=== PATIENT | female | born 2000 | race Caucasian/White ===

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

== ENCOUNTER → 2020-07-16 10:49 | Outpatient (CLI) | payer OTHER, SELFPAY ==
[2020-07-16 10:21] VITALS: BMI 16.5
[2020-07-16 12:17] LABS: Absolute Lymphocyte Count 1.88 X10^3/uL (0.83-4.51); Absolute Neutrophil Count 3.8 X10^3/uL (2.0-7.7); Basophil# 0.05 X10^3/uL; Basophil% 0.8 % (0-1); Eosinophil# 0.34 X10^3/uL; Eosinophils% 5.3 % (0-5); Hematocrit 40.1 % (37-47); Hemoglobin 13.2 g/dL (12.0-15.0); Lymphocyte # 1.88 X10^3/ul (4.0); Lymphocyte % 29.1 % (19-41); Mean Corp Hgb Conc 32.9 g/dL (32-36); Mean Corpuscular Hgb 29.5 pg (27.0-32.0); Mean Corpuscular Volume 89.5 fL (81-99); Mean Platelet Vol. 9.3 fl (6.2-12.0); Monocyte# 0.38 X10^3/uL; Monocyte% 5.9 % (0-10); NRBC Flagged by Analyzer 0 % (0-5); Neutrophil # 3.81 X10^3/uL (2.7-7.7); Neutrophil % 58.7 % (47-70); Platelet Count 230 K/mm3 (150-450); RBC Distribution Width CV 11.8 % (11.6-14.6); RBC Distribution Width SD 38.1 fl (35.1-43.9); Red Blood Count 4.48 M/mm3 (4.2-5.4); White Blood Count 6.5 K/mm3 (4.4-11.0)
[2020-07-16 12:46] LABS: ALB/GLOB Ratio 1.5 RATIO (0.9-2.4); AST(SGOT) 19 U/L (15-37); Alanine Aminotransfer ALT/SGPT 23 U/L (13-56); Albumin, Serum 4.5 g/dL (3.2-5.0); Alkaline Phosphatase 62 U/L (45-117); Anion Gap 4 (5-15); BUN 9 mg/dL (7-18); BUN/Creat Ratio 10.9 RATIO (10-20); Calcium,Total 8.9 mg/dL (8.5-10.1); Chloride 108 mmol/L (98-107); Creatinine, Serum 0.83 mg/dL (0.55-1.02); EST Glomerular Filtration Rate 93 mL/min (>60); Est Glom Filt Rate - Afr Amer 113 mL/min (>60); Globulin 3.1 g/dL (2.2-4.2); Glucose 88 mg/dL (74-106); Potassium 4.2 mmol/L (3.5-5.1); Protein, Total 7.6 g/dL (6.4-8.2); Sodium Level 138 mmol/L (136-145)
== END ==
PROVIDERS: PCP Internal Medicine; Referring Provider Internal Medicine; Visit Provider Internal Medicine
DX: K21.9 Gastro-esophageal reflux disease without esophagitis (principal); K29.70 Gastritis, unspecified, without bleeding
CPT/HCPCS: 36415; 80053; 85025

== ENCOUNTER 2021-04-25 14:46 | Emergency (ER) | payer OTHER, SELFPAY ==
[2021-03-21 09:45] VITALS: BMI 18.5
[2021-04-25 14:46] VITALS: BP 136/86; PULSE 124; RESP 16; TEMP 36.8; O2SAT 99; BMI 18.7
--- NOTE | 2021-04-25 15:15 | ED.VIS.FEGU ---
HPI HPI - Female History of Present Illness Chief Complaint: Vag Bld, Preg Informant: patient Narrative Narrative: Patient is a 20-year-old female who presents to the emergency department for concern for miscarriage. She states that she started to have abdominal cramping and bleeding yesterday. She is gone through 4 pantiliners today. She had one positive test previously and one negative test. [facility] which they could not find any intrauterine . She states her last menstrual period was in February. She was thought to be approximately 6 weeks . This is her first test. Her cramping is currently mild. mostly in the lower quadrants. She has had some lightheadedness. Denies any chest pain, shortness of breath. She denies any urinary symptoms. She has had some chills but no fevers. [facility] Medical History (Updated 04/25/21 @ 16:[address] Trevon Hihgtower DO) Frequent headaches Home Medications NK 04/25/21 [History Last Taken Unknown] Allergy/AdvReac Type Severity Reaction Status Date / Time No Known Allergies Allergy Verified 04/25/21 14:49 Family History Aunt Endometriosis Mother Uterine cyst Hypertension Grandfather Hyperlipemia Social History Smoking Status: Never smoker alcohol intake: current alcohol intake frequency: a few times a month substance use type: marijuana caffeine: Yes (3) Type: carbonated beverages and coffee what type of physical activity do you participate in: none seatbelt use: always do you feel safe at home: Yes additional social history: Patient works at [employer] ED Constitutional Constitutional ED: Reports chills; Denies fever(s) Eyes Eyes: Denies change in vision ENT ENT ED: Denies epistaxis or rhinorrhea Cardiovascular Cardiovascular: Denies chest pain or palpitations Respiratory/Chest Respiratory/Chest: Denies cough, dyspnea or dyspnea on exertion Gastrointestinal Gastrointestinal: Reports abdominal pain; Denies diarrhea, nausea or vomiting Genitourinary Genitourinary ED: Reports other Details: Vaginal bleeding ; Denies dysuria, hematuria or urinary frequency Musculoskeletal Musculoskeletal: Denies back pain or neck pain Integumentary Denies rash Neurologic Neurologic: Denies dizziness, headache(s) or weakness EXAM Physical Exam Const Vital Signs: 04/25/21 14:46 Temperature 98.3 F Temperature Source Temporal Pulse Rate 124 H Respiratory Rate 16 Blood Pressure 136/86 H Blood Pressure Mean 102 Pulse Ox 99 Oxygen Delivery Method Room Air Positive well nourished and well developed General Appearance ED: well developed and NAD HEENT Reports normocephalic, head/scalp atraumatic and moist mucous membranes Eyes PERRL and EOMs intact bilaterally Neck no lymphadenopathy and supple General: Negative for tenderness Chest Wall inspection of chest normal Resp normal respiratory effort and clear to auscultation bilaterally Auscultation: Negative for rales, rhonchi or wheezes Cardio regular rate, regular rhythm and no murmurs GI normal to inspection, nondistended, normoactive bowel sounds and non-tender Palpation: soft; Negative for guarding or rebound tenderness present Back/Spine no CVA tenderness Extremity normal to inspection General Extremety ED: Negative for edema or tenderness General Extremity: Negative for edema Neuro oriented x3, CN's II-XII intact bilaterally and no sensory deficits noted Sensorium / Orientation: alert Motor Exam: strength 5/5 throughout Psych mental status grossly normal Skin no rashes or lesions noted MDM MDM MDM Narrative Medical decision making narrative: Patient presents to the emergency department for abdominal cramping and vaginal bleeding. She states that she had one positive test with negative test up to this point. She is supposed to be on control but is sexually active. Upon arrival to the emergency department she is mildly tachycardic but resolved once lying. She is borderline hypertensive. Otherwise vital signs within normal limits. She is in no acute distress. Will check basic lab work along with an hCG level. Patient's hCG quantitative level is 0. Patient likely having menstrual period. Her white blood cell count is mildly elevated but she is not anemic. Her creatinine is mildly elevated and will need this rechecked by her PCP as an outpatient. Otherwise the urine showed many red blood cells consistent with the bleeding. This time she is stable for discharge. She feels comfortable with this plan. Return precautions are reviewed with her. She understands and is agreeable with plan. All questions were answered. Lab Data Labs: Laboratory Results - last 24 hr 04/25/21 04/25/21 04/25/21 14:30 14:30 14:50 WBC 12.6 H RBC 5.08 Hgb 15.0 Hct 45.7 MCV 90.0 MCH 29.5 MCHC 32.8 RDW Std Deviation 39.0 RDW Coeff of Tree 11.9 Plt Count 295 MPV 9.1 Immature Gran % (Auto) 0.400 Neut % (Auto) 68.4 Lymph % (Auto) 24.3 [place] % (Auto) 5.2 Eos % (Auto) 1.2 Baso % (Auto) 0.5 Absolute Neuts (auto) 8.6 H Absolute Lymphs (auto) 3.07 Nucleated RBC % 0 Sodium 139 Potassium 3.6 Chloride 104 Carbon Dioxide 26.0 Anion Gap 9 BUN 13 Creatinine 1.23 H Estim Creat Clear Calc 57.01 Est GFR (MDRD) Af Amer 71 Est GFR (MDRD) Non-Af 59 L BUN/Creatinine Ratio 10.6 Glucose 99 Calcium 9.4 HCG, Quant < 1 Urine Color Urine Clarity Urine pH Ur Specific [place] Urine Protein Urine Glucose (UA) Urine Ketones Urine Occult Blood Urine Nitrite Urine Bilirubin Urine Urobilinogen Ur Leukocyte Esterase Urine RBC Urine WBC Ur Squamous Epith Cells Urine Bacteria Urine Mucus 04/25/21 15:30 WBC RBC Hgb Hct MCV MCH MCHC RDW Std Deviation RDW Coeff of Tree Plt Count MPV Immature Gran % (Auto) Neut % (Auto) Lymph % (Auto) [place] % (Auto) Eos % (Auto) Baso % (Auto) Absolute Neuts (auto) Absolute Lymphs (auto) Nucleated RBC % Sodium Potassium Chloride Carbon Dioxide Anion Gap BUN Creatinine Estim Creat Clear Calc Est GFR (MDRD) Af Amer Est GFR (MDRD) Non-Af BUN/Creatinine Ratio Glucose Calcium HCG, Quant Urine Color Jennifer Urine Clarity Cloudy Urine pH 5.0 Ur Specific [place] 1.025 Urine Protein 100 H Urine Glucose (UA) Normal Urine Ketones 15 H Urine Occult Blood 250 H Urine Nitrite Negative Urine Bilirubin 1 H Urine Urobilinogen 1 H Ur Leukocyte Esterase 25 H Urine RBC > 100 SEEN Urine WBC 0 SEEN Ur Squamous Epith Cells 0-5 SEEN Urine Bacteria RARE Urine Mucus 0 SEEN Discharge Plan Triage Chief Complaint: Vag Bld, Preg ED Provider: Trevon Hightower Dx/Rx/DC Orders Clinical Impression: Vaginal bleeding Instructions: ED Dysfunctional Uterine Bleeding Prescriptions: No Action NK RF: 0 Primary Care Provider: Omar Chauhan Referrals: Omar Chauhan MD [Primary Care Provider] - 3-5 Days if not improving Disposition Disposition: Home, self care
[2021-04-25 15:23] LABS: Absolute Lymphocyte Count 3.07 X10^3/uL (0.83-4.51); Absolute Neutrophil Count 8.6 X10^3/uL (2.0-7.7); Basophil# 0.06 X10^3/uL; Basophil% 0.5 % (0-1); Eosinophil# 0.15 X10^3/uL; Eosinophils% 1.2 % (0-5); Hematocrit 45.7 % (37-47); Lymphocyte # 3.07 X10^3/ul (0.83-4.51); Lymphocyte % 24.3 % (19-41); Mean Corp Hgb Conc 32.8 g/dL (32-36); Mean Corpuscular Hgb 29.5 pg (27.0-32.0); Mean Platelet Vol. 9.1 fl (6.2-12.0); Monocyte# 0.65 X10^3/uL; Monocyte% 5.2 % (0-10); NRBC Flagged by Analyzer 0 % (0-5); Neutrophil # 8.64 X10^3/uL (2.7-7.7); Neutrophil % 68.4 % (47-70); Platelet Count 295 K/mm3 (150-450); RBC Distribution Width CV 11.9 % (11.6-14.6); Red Blood Count 5.08 M/mm3 (4.2-5.4); White Blood Count 12.6 K/mm3 (4.4-11.0)
[2021-04-25 15:30] LABS: Anion Gap 9 (5-15); BUN 13 mg/dL (7-18); BUN/Creat Ratio 10.6 RATIO (10-20); Calcium,Total 9.4 mg/dL (8.5-10.1); Chloride 104 mmol/L (98-107); Creatinine, Serum 1.23 mg/dL (0.55-1.02); EST Glomerular Filtration Rate 59 mL/min (>60); Est Glom Filt Rate - Afr Amer 71 mL/min (>60); Estimated Creatinine Clearance 57.01 ml/min; Glucose 99 mg/dL (74-106); Potassium 3.6 mmol/L (3.5-5.1); Sodium Level 139 mmol/L (136-145)
[2021-04-25 15:43] LABS: Mucous, Urine 0 SEEN /hpf (<or=2+); White Blood Cells 0 SEEN /hpf (0-5)
[2021-04-25 15:45] LABS: Color, Urine Amber (Yellow); Glucose, Dipstick Normal (Normal); Ketone-Dipstick 15 mg/dl (Negative); Leukocyte Esterase-Dipstick 25 /ul (Negative); Nitrite-Dipstick Negative (Negative); Occult Blood-Urine 250 /ul (Negative); Protein-Dipstick 100 mg/dl (Negative); Specific Gravity, Urine 1.025 (1.002-1.030); Urine Clarity Cloudy (Clear); Urine Urobilinogen 1 mg/dl (Normal)
[2021-04-25 15:48] LABS: Urine Bilirubin Dipstick 1 mg/dL (Negative)
[2021-04-25 15:52] LABS: Red Blood Cells-Urine > 100 SEEN /hpf (0-5); Squamous Epithelial Cells - UA 0-5 SEEN /hpf (5-10)
[2021-04-25 15:53] LABS: Bacteria RARE /hpf (None Seen)
[2021-04-25 15:54] LABS: hCG Titer Quant., Serum < 1 mIU/mL (1-3)
[2021-04-25 16:23] VITALS: PULSE 84; RESP 16; O2SAT 100
--- NOTE | 2021-04-25 16:23 | ED.RN ---
REVIEWED D/C INSTRUCTIONS, FOLLOW UP CARE, AND S/S THAT WOULD WARRANT A RETURN TO THE ED WITH PT. PT VERBALIZED AN UNDERSTANDING AND DENIES FURTHER QUESTIONS FOR THIS RN. PT SKIN P/W/D, RESP EVEN AND UNLABORED, PT A&O X 3, NO DISTRESS NOTED. PT AMBULATED OUT OF ED, GAIT STEADY.
== END 2021-04-25 16:24 | disposition home or self-care (01) ==
PROVIDERS: Emergency Provider Emergency Medicine; PCP Internal Medicine
DX: N93.9 Abnormal uterine and vaginal bleeding, unspecified (principal)
CPT/HCPCS: 80048; 81001; 84702; 85025; 99282; A4216

== ENCOUNTER → 2021-07-29 10:36 | Outpatient (CLI) | payer OTHER, SELFPAY ==
[2021-07-29 11:28] LABS: Absolute Lymphocyte Count 1.88 X10^3/uL (0.83-4.51); Absolute Neutrophil Count 4.9 X10^3/uL (2.0-7.7); Basophil# 0.06 X10^3/uL; Basophil% 0.8 % (0-1); Eosinophil# 0.16 X10^3/uL; Eosinophils% 2.2 % (0-5); Hematocrit 40.3 % (37-47); Hemoglobin 13.2 g/dL (12.0-15.0); Lymphocyte # 1.88 X10^3/ul (0.83-4.51); Lymphocyte % 25.4 % (19-41); Mean Corp Hgb Conc 32.8 g/dL (32-36); Mean Corpuscular Hgb 29.3 pg (27.0-32.0); Mean Corpuscular Volume 89.4 fL (81-99); Mean Platelet Vol. 9.3 fl (6.2-12.0); Monocyte# 0.36 X10^3/uL; Monocyte% 4.9 % (0-10); NRBC Flagged by Analyzer 0 % (0-5); Neutrophil # 4.91 X10^3/uL (2.7-7.7); Neutrophil % 66.3 % (47-70); Platelet Count 235 K/mm3 (150-450); RBC Distribution Width CV 11.8 % (11.6-14.6); RBC Distribution Width SD 38.1 fl (35.1-43.9); Red Blood Count 4.51 M/mm3 (4.2-5.4); White Blood Count 7.4 K/mm3 (4.4-11.0)
[2021-07-29 11:56] LABS: AST(SGOT) 18 U/L (15-37); Alanine Aminotransfer ALT/SGPT 24 U/L (13-56); Albumin, Serum 3.9 g/dL (3.2-5.0); Alkaline Phosphatase 45 U/L (45-117); Anion Gap 4 (5-15); BUN 7 mg/dL (7-18); BUN/Creat Ratio 9.6 RATIO (10-20); Calcium,Total 8.8 mg/dL (8.5-10.1); Chloride 106 mmol/L (98-107); Cholesterol 135 mg/dL (200); Creatinine, Serum 0.73 mg/dL (0.55-1.02); EST Glomerular Filtration Rate 107 mL/min (>60); Est Glom Filt Rate - Afr Amer 129 mL/min (>60); Globulin 3.9 g/dL (2.2-4.2); Glucose 130 mg/dL (74-106); High Density Lipoprotein 58 mg/dL; Potassium 3.9 mmol/L (3.5-5.1); Protein, Total 7.8 g/dL (6.4-8.2); Sodium Level 136 mmol/L (136-145); Triglycerides 106 mg/dL; Very Low Density Lipoprotein 21 mg/dL (5-40)
[2021-08-02 05:07] LABS: Chlamydia By Nucleic Acid AMP Negative (Negative)
[2021-08-02 08:53] LABS: Gonococcus By Nucleic Acid AMP Negative (Negative)
== END ==
PROVIDERS: Obstetrics & Gynecology; PCP Internal Medicine; Referring Provider Internal Medicine; Visit Provider Internal Medicine
DX: Z00.00 Encounter for general adult medical examination without abnormal findings (principal); Z11.3 Encounter for screening for infections with a predominantly sexual mode of transmission
CPT/HCPCS: 36415; 80053; 80061; 85025; 87491; 87591

== ENCOUNTER → 2021-11-16 14:25 | Outpatient (CLI) | payer OTHER, SELFPAY ==
[2021-11-16 14:27] LABS: Mucous, Urine 0 SEEN /hpf (<or=2+); Red Blood Cells-Urine 0 SEEN /hpf (0-5)
[2021-11-16 15:01] LABS: Color, Urine Straw (Yellow); Glucose, Dipstick Normal (Normal); Ketone-Dipstick Negative (Negative); Leukocyte Esterase-Dipstick 25 /ul (Negative); Nitrite-Dipstick Negative (Negative); Occult Blood-Urine 10 /ul (Negative); Protein-Dipstick Negative (Negative); Specific Gravity, Urine 1.015 (1.002-1.030); Urine Bilirubin Dipstick Negative (Negative); Urine Clarity Clear (Clear); Urine Urobilinogen Normal (Normal)
[2021-11-16 15:10] LABS: Squamous Epithelial Cells - UA 0-5 SEEN /hpf (5-10); White Blood Cells 0-5 SEEN /hpf (0-5)
[2021-11-16 15:11] LABS: Bacteria 1+ /hpf (None Seen)
== END ==
PROVIDERS: PCP Internal Medicine; Referring Provider Physician Assistant; Visit Provider Physician Assistant
DX: R35.0 Frequency of micturition (principal); R30.0 Dysuria
CPT/HCPCS: 81001; 87086

== ENCOUNTER → 2025-04-16 | Outpatient (CLI) | payer OTHER, SELFPAY ==
[2025-04-16 15:58] LABS: Color, Urine Yellow (Yellow); Glucose, Dipstick Normal (Normal); Ketone-Dipstick Negative (Negative); Leukocyte Esterase-Dipstick Negative /ul (Negative); Nitrite-Dipstick Negative (Negative); Occult Blood-Urine 50 /ul (Negative); Protein-Dipstick 15 mg/dl (Negative); Specific Gravity, Urine 1.015 (1.002-1.030); Urine Bilirubin Dipstick Negative (Negative); Urine Clarity Clear (Clear); Urine Urobilinogen Normal (Normal)
[2025-04-16 17:48] LABS: ALB/GLOB Ratio 1.5 RATIO (0.9-2.4); AST(SGOT) 25 U/L (<=31); Alanine Aminotransfer ALT/SGPT 15 U/L (<=34); Albumin, Serum 4.8 g/dL (3.5-5.0); Alkaline Phosphatase 67 U/L (35-104); Anion Gap 10 (5-15); BUN 12 mg/dL (4-19); BUN/Creat Ratio 14.3 RATIO (10-20); Calcium,Total 9.5 mg/dL (7.6-11.0); Carbon Dioxide 24.4 mmol/L (21.0-32.0); Chloride 103 mmol/L (98-108); Creatinine, Serum 0.83 mg/dL (0.70-1.20); EST Glomerular Filtration Rate 101 (>60); Globulin 3.2 g/dL (2.2-4.2); Glucose 90 mg/dL (70-99); Potassium 4.1 mmol/L (3.3-5.1); Protein, Total 7.9 g/dL (5.9-8.4); Sodium Level 138 mmol/L (133-145); Total Bilirubin 0.51 mg/dL (0.00-1.30)
[2025-04-18 04:07] LABS: ASO Titer 315.4 IU/mL (0.0-200.0)
[2025-04-21 15:08] LABS: Anti-Nuclear Antibody Test Negative (.)
== END | disposition home or self-care (01) ==
LOC: MTLAB 12:31
PROVIDERS: PCP Family Medicine; Referring Provider Physician Assistant; Visit Provider Physician Assistant
DX: L30.9 Dermatitis, unspecified (principal)
CPT/HCPCS: 36415; 80053; 81002; 86038; 86060; 87086

== ENCOUNTER → 2025-10-06 | Outpatient (CLI) | payer OTHER, SELFPAY ==
--- OUTSIDE RECORDS SUMMARY | 2025-10-06 17:18 | XMS RPT_ITS | CCD ---
Author Organization [facility] ion [facility] Care Team Providers Care Lcsw Name Role Phone Ivanauskas, Saulius Unavailable Unavailable Ivanauskas, Saulius Unavailable Unavailable No Doctor Assigned, Nodr Unavailable Unavail able STAN CHAUHAN Primary Care Unav ailable RASHIDA HELLER Attending Unavailab RASHIDA Keyes Admitting Unavailab le VALE DO-FACNEHEMIAS LOPEZ Attending Unavail able SOLE CHAUHANBE B Primary Care Unavailable VALE DO-FACNEHEMIAS LOPEZ Attending Unavail able SOLE CHAUHANBE B Primary Care Unavailable VALE DO-FACNEHEMIAS LOPEZ Attending Unavail able SOLE CHAUHANBE B Primary Care Unavailable Sole Chauhanbe B Unavailable Kodi Ramsey Unavailable Unavailable Roxy, Ms. Kodi Lancaster Attending Dr. Stan Shirley Primary Care Unavailable Angela Parker MD Primary Care Provider Angela Parker MD Unavailable Angela Parker MD Unavailable [phone] Angela Parker MD Primary Care Provider ANGELA PARKER Primary Care Unavailable Angela Parker MD Primary Care Provider Angela Parker MD Unavailable Dr. Angela Parker MD Primary Care Provider Joaquina Berrios Attending Provider Joaquina Berrios Referring Provider ANGELA PARKER Primary Care Unavailable Yeater, Angela Archuleta Primary Care Unavailable Sarah Eric Attending Unavailable Yeater, Angela M Referring Unavailable Joaquina Berrios Referring Unavailable Joaquina Berrios Attending Unavailable Yeater, Angela Kathe Primary Care Unavailable DON KATELYN Miller Attending Unavailable YEATER, ANGELA M Primary Care Unavailable YEATER, ANGELA M Attending Unavailable YEATER, ANGELA M Primary Care Unavailable YEATER, ANGELA M Attending Unavailable YEATER, ANGELA M Primary Care Unavailable YEATER, ANGELA M Attending Unavailable YEATER, ANGELA M Primary Care Unavailable YEATER, ANGELA M Referring Unavailable YEATER, ANGELA M Attending Unavailable YEATER, ANGELA M Primary Care Unavailable YEATER, ANGELA M Attending Unavailable YEATER, ANGELA M Primary Care Unavailable YEATER, ANGELA M Attending Unavailable YEATER, ANGELA M Primary Care Unavailable Allergies Allergy Classification Reported Allergen(s) Allergy Type Date of Onset Reaction(s) Facility (1 source) Azithromycin; Translations: [Zithromax] Drug Allergy [facility] Repository (7 sources) Azithromycin; Translations: [AZITHROMYCIN] Drug Allergy 03-23-2025 [facility] Medications Current Medications Medication Drug Class(es) Dates Sig (Normalized) Sig (Original) acetaminophen 500 mg oral tablet (5 sources) acetaminophen (Tylenol) 500 mg tablet Take 2 tablets (1,000 mg) by mouth if needed for mild pain (1 - 3). Active CONTROL (1 source) CONTROL Quantity: 0 Refills: 0 Ordered: 26-Jun-2023 Cynthia Graves Generic Substitution Allowed 12 hr buPROPion hydrochloride 150 mg extended release oral tablet (1 source) Aminoketone Start: 01-09-2024 End: 02-07-2024 take 1 tablet by mouth twice daily buPROPion SR (Wellbutrin SR) 150 mg 12 hr tablet Indications: Vaping nicotine dependence, non-tobacco product Take 1 tablet (150 mg) by mouth 2 times a day. Do not crush, chew, or split. 60 tablet 1 01/09/2024 02/07/2024 Discontinued (Med List Cleanup) cephalexin 500 mg oral capsule (1 source) Cephalosporin Antibacterial Start: 01-04-2024 End: 02-07-2024 take 1 capsule by mouth three times daily cephalexin (Keflex) 500 mg capsule Take 1 capsule (500 mg) by mouth 3 times a day. 0 01/04/2024 02/07/2024 Discontinued (Med List Cleanup) colchicine 0.6 mg oral tablet (1 source) Start: 06-03-2025 take 1 tablet by mouth every twelve hours colchicine 0.6 mg tablet Take 1 tablet (0.6 mg) by mouth every 12 hours. 06/03/2025 Active Desog-E.Estradiol/E .Estradiol (2 sources) Progestin, Estrogen Start: 07-27-2021 Desog-E.Estradiol/ E.Estradiol 0.15-0.02 mgx21 /0.01 mg x 5 tablet Active NMA PO July 27, 2021 12:00am Start: 05-21-2020 End: 03-21-2021 take 0.15 tablet by mouth once daily Desog-E.Estradiol/E.Estradiol (Kariva (2 8)) 0.15-0.02 mgx21 /0.01 mg x 5 tablet Discontinued 1 {tbl} PO daily May 21, 2020 12:00am March 21, 2021 10:16am fluconazole 150 mg oral tablet (1 source) Azole Antifungal Start: 06-26-2023 Diflucan 150 mg oral tablet ; 1 tab(s) orally once today and then again in 3 days Quantity: 2 Refills: 0 Ordered: 26-Jun-2023 Kodi Ramsey Start: 26-Jun-2023 Generic Substitution Allowed Comments: Do not take this drug if you are .Finish all this medication unless otherwise directed by prescriber. Comment on above: Do not take this susana g if you are .Finish all this medication unless otherwise directed by prescriber. levoFLOXacin 250 mg oral tablet (1 source) Quinolone Antimicrobial Start: 11-17-2021 take 1 tablet by mouth once daily Levofloxacin 250 mg tablet Active 250 mg PO DAILY November 17, 2021 1:00am levonorgestrel 0.596327 mg/hr intrauterine system (2 sources) Progestin, Progestin-containin g Intrauterine Device Start: 03-23-2025 End: 03-23-2025 levonorgestreL (Liletta) IUD 52 mg Start: 03-23-2025 End: 03-23-2025 52 mg (1 each), intrauterine , Once, On 03/23/25 at 1115, For 1 dose methylPREDNISolone (2 sources) Corticosteroid Start: 03-17-2025 End: 03-23-2025 methylPREDNISolone (Medrol Dospak) 4 mg tablets Indications: Itching of both hands , Irritant contact dermatitis due to cosmetics Take as directed on package. 21 tablet 03/17/2025 03/23/2025 Active 24 hr nicotine 0.292 mg/hr transdermal system (6 sources) Cholinergic Nicotinic Agonist Start: 03-20-2024 End: 05-12-2024 apply 1 dose transdermal route every twenty-four hours nicotine (Nicoderm CQ) 7 mg/24 hr patch Indications: Vaping nicotine dependence, non-tobacco product Place 1 patch over 24 hours on the skin once every 24 hours. Do not start before March 20, 2024. 14 patch 03/20/2024 05/12/2024 Discontinued (Med List Cleanup) Start: 02-07-2024 End: 05-12-2024 apply 1 dose transdermal route every twenty-four hours nicotine (Nicoderm CQ) 14 mg/24 hr patch Indications: Vaping nicotine dependence, non-tobacco product Place 1 patch over 24 hours on the skin once every 24 hours. 42 patch 02/07/2024 05/12/2024 Discontinued (Med List Cleanup) Start: 02-07-2024 End: 05-12-2024 nicotine polacrilex (Nicoret te) 2 mg gum Indications: Vaping nicotine dependence, non-tobacco product Chew 1 each (2 mg) if needed for smoking cessation. 100 each 3 02/07/2024 05/12/2024 Discontinued (Med List Cleanup) phenazopyridine hydrochloride 100 mg oral tablet (1 source) Start: 09-08-2024 End: 09-11-2024 take 1 tablet by mouth three times daily as needed for muscle spasms phenazopyridine (Pyridium) 100 mg tablet Indications: Urine frequency , Dysuria Take 1 tablet (100 mg) by mouth 3 times a day as needed for bladder spasms for up to 3 days. 9 tablet 09/08/2024 09/11/2024 Active predniSONE 20 mg oral tablet (1 source) Start: 05-21-2025 take 0.5 tablet by mouth once daily predniSONE (Deltasone) 20 mg tablet Take 0.5 tablets (10 mg) by mouth once daily. 50 MG , down to 40mg tomorrow 05/21/2025 Active sulfamethoxazole 800 mg / trimethoprim 160 mg oral tablet (1 source) Dihydrofolate Reductase Inhibitor Antibacterial, Sulfonamide Antimicrobial Start: 09-08-2024 End: 09-11-2024 take 1 tablet by mouth twice daily sulfamethoxazole-tri methoprim (Bactrim DS) 800-160 mg tablet Indications: Urine frequency , Dysuria Take 1 tablet by mouth 2 times a day for 3 days. 6 tablet 09/08/2024 09/11/2024 Active timolol 0.005 mg/mg ophthalmic gel (1 source) beta-Adrenergic Isaac Start: 06-03-2025 timolol (Timoptic-XR) 0.5 % ophthalmic gel-forming APPLY 3 DROPS TO THE RIGHT LEG AND 2 DROPS TO THE LEFT EVERY MORNING 06/03/2025 Active Completed/Discontinued Medications Medication Drug Class(es) Dates Sig (Normalized) Sig (Original) ciprofloxacin 500 mg oral tablet (1 source) Quinolone Antimicrobial Start: 11-16-20 End: 11-17-20 21 take 1 tablet by mouth twice daily Ciprofloxacin Hcl 500 mg tablet Discontinued 500 mg PO TWICE A DAY November 16, 2021 1:00am November 17, 2021 3:50pm 1 ml medroxyPROGESTERone acetate 150 mg/ml injection (3 sources) Progestin Start: 02-20-20 End: 03-21-20 inject 150 mg by intramuscular injection every three months Medroxyprogesterone (Depo-Provera) 150 mg/mL suspension Discontinued 150 mg IM every 3 months February 26, 2020 10:57am March 21, 2021 9:50am omeprazole 40 mg delayed release oral capsule (2 sources) Proton Pump Inhibitor Start: 03-14-20 End: 03-19-20 take 1 capsule by mouth once daily Omeprazole 40 mg capsule,delayed release(DR/EC) Discontinued 40 mg PO DAILY March 14, 2019 10:12am March 19, 2019 2:17pm Start: 02-24-2019 End: 03-14-2019 take 1 capsule by mouth once daily Omeprazole 20 mg capsule,delayed release(DR/EC) Discontinued 20 mg PO DAILY February 24, 2019 12:00am March 14, 2019 10:12am pantoprazole 40 mg delayed release oral tablet (2 sources) Proton Pump Inhibitor Start: 04-10-2019 End: 07-10-2019 take 1 tablet by mouth twice daily Pantoprazole 40 mg tablet,delayed release (DR/EC) Discontinued 40 mg PO TWICE A DAY 180 April 10, 2019 5:14pm July 10, 2019 1:50pm Start: 03-19-2019 End: 04-10-2019 take 1 tablet by mouth once daily Pantoprazole 40 mg tablet,delayed release (DR/EC) Discontinued 40 mg PO DAILY 30 March 19, 2019 12:00am April 10, 2019 5:15pm sucralfate 1000 mg oral tablet (1 source) Aluminum Complex Start: 03-14-2019 End: 04-10-2019 take 1 tablet by mouth at bedtime Sucralfate 1 gram tablet Discontinued 1 g PO before meals and at bedtime 60 March 14, 2019 12:00am April 10, 2019 5:14pm Problems Active Problems Problem Classification Problem Date Documented Da te Episodic/Chronic Abdominal pain (1 source) Abdominal pain; Translations: [Unspecified abdominal pain] 02-24-2019 Episodic Allergic reactions (4 sources) Irritant contact dermatitis due to cosmetic; Translations: [Irritant contact dermatitis due to cosmetics] Onset: 5 03-17-2025 Episodic Coagulation and hemorrhagic disorders (6 sources) Petechiae; Translations: [Spontaneous ecchymoses] Onset: 5 04-14-2025 Episodic Contraceptive and procreative management (18 sources) Intrauterine contraceptive device in situ; Translations: [Presence of (intrauterine) contraceptive device] Onset: 5 03-23-2025 Episodic Esophageal disorders (1 source) Gastroesophageal reflux disease; Translations: [Gastro-esophageal reflux disease without esophagitis] 02-24-2019 Chronic Gastritis and duodenitis (1 source) Gastritis; Translations: [Gastritis, unspecified, without bleeding] 02-24-2019 Episodic Gastrointestinal hemorrhage (1 source) Hematochezia; Translations: [Melena] 03-14-2019 Episodic Immunizations and screening for infectious disease (14 sources) Patient encounter status; Translations: [Encounter for screening for human immunodeficiency virus [HIV]] Onset: 5 05-12-2024 Episodic Inflammatory diseases of female pelvic organs (3 sources) Vaginitis; Translations: [Vaginitis and vulvovaginitis, unspecified] Onset: 3 06-26-2023 Episodic Other circulatory disease (3 sources) Hypersensitivity angiitis; 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 Other circulatory disease (2 sources) Hypersensitivity angiitis; 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 Other connective tissue disease (2 sources) Pain of left lower leg; Translations: [Pain in left lower leg] Onset: 5 04-14-2025 Episodic Other connective tissue disease (1 source) Pain in left lower leg; Translations: [Pain in left lower leg] Onset: 5 Episodic Other female genital disorders (1 source) Vaginal bleeding; Translations: [Abnormal uterine and vaginal bleeding, unspecified] 04-25-2021 Chronic Other female genital disorders (4 sources) Vaginal discharge; Translations: [Leukorrhea, not specified as infective] 06-26-2023 Episodic Comment on above: VAGINAL DISCHARGE Other female genital disorders (1 source) Other specified noninflammatory disorders of vagina; Translations: [Other specified noninflammatory disorders of vagina] Onset: 3 Episodic Other inflammatory condition of skin (3 sources) Pruritus, unspecified; Translations: [Unspecified pruritic disorder] Onset: 5 03-17-2025 Episodic Substance-related disorders (12 sources) Nicotine dependence; Translations: [Nicotine dependence, unspecified, uncomplicated] Onset: 4 02-07-2024 Chronic Past or Other Problems Problem Classification Problem Date Documented Da te Episodic/Chronic Genitourinary symptoms and ill-defined conditions (5 sources) Dysuria; Translations: [Increased frequency of urination] Onset: 06-26-2023 09-08-2024 Episodic Other nutritional; endocrine; and metabolic disorders (13 sources) Underweight; Translations: [Underweight] Onset: 02-07-2024 02-07-2024 Episodic Other nutritional; endocrine; and metabolic disorders (1 source) Underweight; Translations: [Underweight] Onset: 05-12-2024 Episodic Other screening for suspected conditions (not mental disorders or infectious disease) (7 sources) Cancer cervix screening status; Translations: [Encounter for screening for malignant neoplasm of cervix] Onset: 12-10-2024 12-11-2024 Episodic Unclassified (10 sources) Onset: 01-09-2024 Resolved: 09-08-2024 01-09-2024 Unclassified (1 source) Patient encounter status 03-23-2025 Results Test Name Value Interpretation Reference Range Facility IUD Removalon 06-04-2025 Angela Parker MD 06/04/2025 12:26 PM IUD Removal Performed by: Angela Parker MD Authorized by: Angela Parker MD Procedure: IUD removal Consent obtained by patient, parent, or legal power of commercial real estate attorney - including discussion of procedure risks and benefits, patient questions answered, and patient education provided: yes Reason for removal: patient request Strings visualized: yes Tenaculum applied to cervix: no Cervix manually dilated: no IUD grasped by forceps: yes Performed with ultrasound guidance: no IUD removed: yes Date/Time of Removal: 06/04/2025 11:55 AM Removed without complications: yes IUD intact: yes [facility] Work Phone: [facility] Work Phone: ALBUMIN, RANDOM URINE W/CREA TININEon 05-13-2025 ALBUMIN, URINE 1.2 mg/dL Normal See Note: [facility] Comment on above: Order Comment: FASTI NG:UNKNOWN FASTING: UNKNOWN Result Comment: Refe rence Range: Reference Range Not established Performed By: #### 6 [id number] #### [facility] [address], [address] [place] [id number] Personal Protection Specialist: Juan Hutton MD ALBUMIN/CREATININE RATIO, RANDOM URINE 6 mg/g creat Normal <30 [facility] Comment on above: Order Comment: FASTI NG:UNKNOWN FASTING: UNKNOWN Result Comment: The ADA defines abnormalities in albumin excretion as follows: Albuminuria Category Result (mg/g creatinine) Normal to Mildly increased <30 Moderately increased 30-299 Severely increased > OR = 300 The ADA recommends that at least two of three specimens collected within a 3-6 month period be abnormal before considering a patient to be within a diagnostic category. Performed By: #### 6 517 #### [facility] [address], [address] [place] [address] Personal Protection Specialist: Juan Hutton MD Creatinine (U) [Mass/Vol] 185 mg/dL Normal 20-275 [facility] Comment on above: Order Comment: FASTI NG:UNKNOWN FASTING: UNKNOWN Performed By: #### 6 517 #### [facility] [address] [place] [address] Rd, [address] [place] [address] Personal Protection Specialist: Juan Hutton MD POCT UA Automated manually r esultedOrdered By: Tari Sy on 05-04-2025 Appearance (U) Clear Clear [facility] Glucose Test strip (U) [Mass/Vol] Negative NEGATIVE mg/dl [facility] Hemoglobin Ql (U) MODERATE (2+) Abnormal NEGATIVE [facility] Interpretation and review of laboratory results Abnormal [facility] Leukocyte esterase Test strip Ql (U) Negative NEGATIVE [facility] Nitrite Ql (U) Negative NEGATIVE [facility] pH (U) 5.5 [pH] No Reference Range Established [facility] POC Bilirubin, Urine Negative NEGATIVE [facility] POC Color, Urine Jennifer Abnormal Straw, [place] ow, Light-Yellow [facility] POC Ketones, Urine Negative NEGATIVE mg/dl [facility] Protein, Urine Negative NEGATIVE mg/dl Un [facility] POC Specific [place], Urine >=1.030 1.005 - 1.035 [facility] POC Urobilinogen, Urine 0.2 0.2, 1.0 EU/ DL [facility] Antinuclear Antibody, IFAon 04-21-2025 LIANA, IFA Negative Normal . [facility] Comment on above: Result Comment: Nega tive <1:80 Borderline 1:80 Positive >1:80 ICAP nomenclature: AC-0 For more information about Hep-2 cell patterns use ANApatterns.org, the official website for the International Consensus on Antinuclear Antibody (LIANA) Patterns (ICAP). Performed at: [facility] [id number] Precast Worker: Burt Zepeda PhD, Phone: [phone] Performed By: #### L 400.2010, L3100.7700, L500.4050, L3100.7950, M100.2200 #### [facility] [address] [place], [address] ASO Titeron 04-18-2025 ASO Ab 315.4 IU/mL High 0.0-200.0 [facility] Comment on above: Result Comment: Perf ormed at: - [facility] [address] [place], [place] [id number] Precast Worker: Burt Zepeda PhD, Phone: [phone] Performed By: #### L 400.2010, L3100.7700, L500.4050, L3100.7950, M100.2200 #### [facility] [address] [place], [address] Urine Cultureon 04-17-2025 URC Culture exhibits no growth. Normal [facility] Comment on above: Performed By: #### L 400.2010, L3100.7700, L500.4050, L3100.7950, M100.2200 #### [facility] [address] [facility]. [place], [place], [address] [phone] ASO titerOrdered By: Armaan Edwards on 04-16-2025 Streptolysin O Ab (S) [Titer] 315.4 IU/mL High 0.0-200.0 [facility] Comment on above: Performed at: - [address] [facility] [id number] Director: Burt Zepeda PhD, Phone: [phone] Anion gap in Serum or Plasma Ordered By: Joaquina Edwards on 04-16-2025 Anion gap [Moles/Vol] 10 mmol/L 5-15 [facility] BUN/creatinine ratioOrdered By: Joaquina Edwards on 04-16-2025 Urea nitrogen/Creatinine [Mass ratio] 14.3 mg/mg 10-20 [facility] Bilirubin Test strip Ql (U)O rdered By: Joaquina Edwards on 04-16-2025 Bilirubin Ql (U) Negative Negative [facility] Bilirubin, totalOrdered By: Joaquina Edwards on 04-16-2025 Bilirubin [Mass/Vol] 0.51 mg/dL 0.00-1.30 [facility] Carbon dioxide, total [Moles /volume] in Central venous bloodOrdered By: Joaquina Edwards on 04-16-2025 CO2 [Moles/Vol] 24.4 mmol/L 21.0-32.0 [facility] Chloride assayOrdered By: Fr jessica Edwards on 04-16-2025 Chloride [Moles/Vol] 103 mmol/L 98-108 [facility] Comprehensive Metabolic Prof ilon 04-16-2025 Albumin [Mass/Vol] 4.8 g/dL Normal 3.5-5.0 [facility] Comment on above: Performed By: #### L 400, L3100.7700, L500.4050, L3100.7950, M100.2200 #### [facility] [address] [place], [address] Albumin/Globulin [Mass ratio] 1.5 {ratio} Normal 0.9-2.4 [facility] Comment on above: Performed By: #### L 400, L3100.7700, L500.4050, L3100.7950, M100.2200 #### [facility] [address] [place], [address] ALK PHOS 67 U/L Normal 35-104 [facility] Comment on above: Performed By: #### L 400, L3100.7700, L500.4050, L3100.7950, M100.2200 #### [facility] [address] [place], [address] ALT [Catalytic activity/Vol] 15 U/L Normal <=34 [facility] Comment on above: Performed By: #### L 400, L3100.7700, L500.4050, L3100.7950, M100.2200 #### [facility] [address] [place], [address] AST [Catalytic activity/Vol] 25 U/L Normal <=31 [facility] Comment on above: Performed By: #### L 400, L3100.7700, L500.4050, L3100.7950, M100.2200 #### [facility] [address] [place], [address] Bilirubin [Mass/Vol] 0.51 mg/dL Normal 0.00-1.30 [facility] Comment on above: Performed By: #### L 400, L3100.7700, L500.4050, L3100.7950, M100.2200 #### [facility] [address] [place], [address] BUN/CRE 14.3 RATIO Normal 10-20 [facility] Comment on above: Performed By: #### L 400, L3100.7700, L500.4050, L3100.7950, M100.2200 #### [facility] [address] [place], [address] Calcium [Mass/Vol] 9.5 mg/dL Normal 7.6-11.0 [facility] Comment on above: Performed By: #### L 400, L3100.7700, L500.4050, L3100.7950, M100.2200 #### [facility] [address] [place], [address] Chloride [Moles/Vol] 103 mmol/L Normal 98-108 [facility] Comment on above: Performed By: #### L 400, L3100.7700, L500.4050, L3100.7950, M100.2200 #### [facility] [address] [place], [address] CO2 [Moles/Vol] 24.4 mmol/L Normal 21.0-32.0 [facility] Comment on above: Performed By: #### L 400, L3100.7700, L500.4050, L3100.7950, M100.2200 #### [facility] [address] [place], [address] Creatinine [Mass/Vol] 0.83 mg/dL Normal 0.70-1.20 [facility] Comment on above: Performed By: #### L 400.2010, L3100.7700, L500.4050, L3100.7950, M100.2200 #### [facility] [address] [place], [address] GAP 10 Normal 5-15 [facility] Comment on above: Performed By: #### L 400, L3100.7700, L500.4050, L3100.7950, M100.2200 #### [facility] [address] [place], [address] GFR/1.73 sq M.predicted among non-blacks MDRD (S/P/Bld) [Vol rate/Area] 101 mL/min/{1.73_m2} Normal >60 [facility] Comment on above: Result Comment: mL/m in/1.73m2 CKD-EPI Creatinine Equation (2020) Performed By: #### L 400, L3100.7700, L500.4050, L3100.7950, M100.2200 #### [facility] [address] [place], [address] Globulin (S) [Mass/Vol] 3.2 g/dL Normal 2.2-4.2 [facility] Comment on above: Performed By: #### L 400, L3100.7700, L500.4050, L3100.7950, M100.2200 #### [facility] [address] [place], [address] Glucose [Mass/Vol] 90 mg/dL Normal 70-99 [facility] Comment on above: Performed By: #### L 400, L3100.7700, L500.4050, L3100.7950, M100.2200 #### [facility] [address] [place], [address] Potassium [Moles/Vol] 4.1 mmol/L Normal 3.3-5.1 [facility] Comment on above: Performed By: #### L 400.2010, L3100.7700, L500.4050, L3100.7950, M100.2200 #### [facility] [address] [place], [address] Sodium [Moles/Vol] 138 mmol/L Normal 133-145 [facility] Comment on above: Performed By: #### L 400.2010, L3100.7700, L500.4050, L3100.7950, M100.2200 #### [facility] [address] [place], [address] T PROT 7.9 g/dL Normal 5.9-8.4 [facility] Comment on above: Performed By: #### L 400.2010, L3100.7700, L500.4050, L3100.7950, M100.2200 #### [facility] [address] [place], [address] Urea nitrogen [Mass/Vol] 12 mg/dL Normal 4-19 [facility] Comment on above: Performed By: #### L 400.2010, L3100.7700, L500.4050, L3100.7950, M100.2200 #### [facility] [address] [place], [address] Glomerular filtration rate ( GFR) estimation/1.73 sq m using serum, plasma, or whole bOrdered By: Joaquina Edwards on 04-16-2025 GFR/1.73 sq M.predicted among non-blacks MDRD (S/P/Bld) [Vol rate/Area] 101 mL/min/{1.73_m2} >60 [facility] Comment on above: mL/min/1.73m2 CKD-EP I Creatinine Equation (2020) Ketones Test strip Ql (U)Ord ered By: Joaquina Edwards on 04-16-2025 Ketones Ql (U) Negative Negative [facility] - Chemistry and C hemistry - challengeOrdered By: Joaquina Edwards on 04-16-2025 AST [Catalytic activity/Vol] 25 U/L <32 [facility] Nitrite Test strip Ql (U)Ord ered By: Joaquina Edwards on 04-16-2025 Nitrite Ql (U) Negative Negative [facility] Potassium measurement (mass/ volume)Ordered By: Joaquina Edwards on 04-16-2025 Potassium (Unsp spec) [Mass/Vol] 4.1 mmol/L 3.3-5.1 [facility] Protein Test strip Ql (U)Ord ered By: Joaquina Edwards on 04-16-2025 Protein Ql (U) 15 mg/dl High Negative [facility] Serum creatinine measurement (mass/volume)Ordered By: Joaquina Edwards on 04-16-2025 Creatinine [Mass/Vol] 0.83 mg/dL 0.70-1.20 [facility] Serum globulin measurementOr dered By: Joaquina Edwards on 04-16-2025 Globulin (S) [Mass/Vol] 3.2 g/dL 2.2-4.2 W [facility] Serum glucose measurement (m ass/volume)Ordered By: Joaquina Edwards on 04-16-2025 Glucose [Mass/Vol] 90 mg/dL 70-99 [facility] Serum or plasma alanine stewart otransferase (ALT) measurementOrdered By: Joaquina Edwards on 04-16-2025 ALT [Catalytic activity/Vol] 15 U/L <35 [facility] Serum or plasma albumin evelyne urement (mass/volume)Ordered By: Joaquina Edwards on 04-16-2025 Albumin [Mass/Vol] 4.8 g/dL 3.5-5.0 [facility] Serum or plasma albumin/glob ulin mass ratioOrdered By: Joaquina Edwards on 04-16-2025 Albumin/Globulin [Mass ratio] 1.5 {ratio} 0.9-2.4 [facility] Serum or plasma alkaline radha sphatase measurementOrdered By: Joaquina Edwards on 04-16-2025 ALP [Catalytic activity/Vol] 67 U/L 35-104 [facility] Serum or plasma calcium evelyne urement (mass/volume)Ordered By: Joaquina Edwards on 04-16-2025 Calcium [Mass/Vol] 9.5 mg/dL 7.6-11.0 [facility] Serum or plasma urea nitroge n measurement (mass/volume)Ordered By: Joaquina Edwards on 04-16-2025 Urea nitrogen [Mass/Vol] 12 mg/dL 4-19 [facility] Sodium levelOrdered By: Maciej Edwards on 04-16-2025 Sodium [Moles/Vol] 138 mmol/L 133-145 [facility] Total proteinOrdered By: Jayson Edwards on 04-16-2025 Protein [Mass/Vol] 7.9 g/dL 5.9-8.4 [facility] Urinalysis, Routine (Dipstic k)on 04-16-2025 BILIRUBIN URINE Negative Normal Negative [facility] Comment on above: Order Comment: CLEAN CATCH Performed By: #### L 400.2010, L3100.7700, L500.4050, L3100.7950, M100.2200 #### [facility] [address] [place], [address] Clarity (U) Clear Normal Clear [facility] Comment on above: Order Comment: CLEAN CATCH Performed By: #### L 400.2010, L3100.7700, L500.4050, L3100.7950, M100.2200 #### [facility] [address] [place], [address] Color (U) Yellow Normal Yellow [facility] Comment on above: Order Comment: CLEAN CATCH Performed By: #### L 400.2010, L3100.7700, L500.4050, L3100.7950, M100.2200 #### [facility] [address] [place], [address] GLUCOSE, UR Normal Normal Normal [facility] Comment on above: Order Comment: CLEAN CATCH Performed By: #### L 400.2010, L3100.7700, L500.4050, L3100.7950, M100.2200 #### [facility] [address] [place], [address] KETONE UR Negative Normal Negative [facility] Comment on above: Order Comment: CLEAN CATCH Performed By: #### L 400.2010, L3100.7700, L500.4050, L3100.7950, M100.2200 #### [facility] [address] [place], [address] LEUK ESTERASE Negative Normal Negative [facility] Comment on above: Order Comment: CLEAN CATCH Performed By: #### L 400.2010, L3100.7700, L500.4050, L3100.7950, M100.2200 #### [facility] [address] [place], [address] Nitrite Ql (U) Negative Normal Negative [facility] Comment on above: Order Comment: CLEAN CATCH Performed By: #### L 400.2010, L3100.7700, L500.4050, L3100.7950, M100.2200 #### [facility] [address] [place], [address] OCCULT BLOOD-UR 50 /ul Abnormal Negative [facility] Comment on above: Order Comment: CLEAN CATCH Performed By: #### L 400.2010, L3100.7700, L500.4050, L3100.7950, M100.2200 #### [facility] [address] [place], [address] pH UR 8.0 Normal 5.0 - 8.0 [facility] Comment on above: Order Comment: CLEAN CATCH Performed By: #### L 400.2010, L3100.7700, L500.4050, L3100.7950, M100.2200 #### [facility] [address] [place], [address] PROT DIPSTX 15 mg/dl Abnormal Negative [facility] Comment on above: Order Comment: CLEAN CATCH Performed By: #### L 400.2010, L3100.7700, L500.4050, L3100.7950, M100.2200 #### [facility] [address] [place], [address] SP.GR. DIPSTX 1.015 Normal 1.002-1.030 [facility] Comment on above: Order Comment: CLEAN CATCH Performed By: #### L 400.2010, L3100.7700, L500.4050, L3100.7950, M100.2200 #### [facility] [address] [place], [address] UROBILI Normal Normal Normal [facility] Comment on above: Order Comment: CLEAN CATCH Performed By: #### L 400.2010, L3100.7700, L500.4050, L3100.7950, M100.2200 #### [facility] [address] [place], [address] Urine clarityOrdered By: Jayson Edwards on 04-16-2025 Clarity (U) Clear Clear [facility] Urine color determinationOrd ered By: Joaquina Edwards on 04-16-2025 Color (U) Yellow Yellow [facility] Urine cultureOrdered By: Jayson Edwards on 04-16-2025 Bacteria identified Cx Nom (U) Culture exhibits no growth. [facility] Urine glucose detectionOrder ed By: Joaquina Edwards on 04-16-2025 Glucose Ql (U) Normal mg/dl Normal [facility] Urine leukocyte esterase det ection by dipstickOrdered By: Joaquina Edwards on 04-16-2025 Leukocyte esterase Test strip Ql (U) Negative Negative [facility] Urine pHOrdered By: Joaquina Edwards on 04-16-2025 pH (U) 8.0 [pH] 5.0 - 8.0 [facility] Urine specific gravity measu rementOrdered By: Joaquina Edwards on 04-16-2025 Specific gravity (U) [Rel density] 1.015 1.002-1.030 [facility] Urine urobilinogen measureme ntOrdered By: Joaquina Edwards on 04-16-2025 Urobilinogen Ql (U) Normal mg/dl Normal [facility] Borrelia burgdorferi.VlsE1+p epC10 Abon 04-14-2025 Borrelia burgdorferi.VlsE1+pepC1 0 Ab 0.29 IV Normal <=0.90 [facility] Comment on above: Result Comment: When Borrelia burgdorferi VlsE1/pepC10 assay is negative further testing is not recommended and will not be performed. REFERENCE INTERVAL: B. burgdorferi VlsE1/pepC10 Abs, PARADISE 0.90 IV or less..........Negative: VlsE1 and pepC10 antibodies to B. burgdorferi not detected. 0.91 - 1.09 IV...........Equivocal: Repeat testing in 10-14 days may be helpful. 1.10 IV or greater.......Positive: VlsE1 and pepC10 antibodies to B. burgdorferi detected. Performed By: [facility] [address] [place] [address] Project Crew Worker: Dieter Knox MD, PhD CLIA Number: [id number] Performed By: #### 1 77592-5 #### [facility]) ([id number]) [address] [place] [address] C reactive proteinon 025 CRP [Mass/Vol] mg/L Normal <1.00 [facility] Comment on above: Performed By: #### 1 988-5 #### [facility] ([id number]) [facility] ([facility]) [address] [place] [address] C-reactive proteinon 025 CRP [Mass/Vol] mg/dL NINF - 1.00 mg/dL [facility] CBC W Auto Differential pane l (Bld)on 04-14-2025 Basophils (Bld) [#/Vol] 0.08 10*3/uL [facility] Basophils/100 WBC (Bld) 1 % 0.0 - 2.0 % [facility] Eosinophils (Bld) [#/Vol] 0.19 10*3/uL [facility] Eosinophils/100 WBC (Bld) 2.3 % 0.0 - 6.0 % [facility] Erythrocyte distribution width (RBC) [Ratio] 11.9 % 11.5 - 14.5 % [facility] Hematocrit (Bld) [Volume fraction] 41.8 % 36.0 - 46.0 % [facility] Hemoglobin (Bld) [Mass/Vol] 13.8 g/dL 12.0 - 16.0 g/dL [facility] Immature granulocytes (Bld) [#/Vol] 0.02 10*3/uL [facility] Immature granulocytes/100 WBC (Bld) 0.2 % 0.0 - 0.9 % [facility] Comment on above: Immature Granulocyte Count (IG) includes promyelocytes, myelocytes and metamyelocytes but does not include bands. Percent differential counts (%) should be interpreted in the context of the absolute cell counts (cells/UL). Lymphocytes (Bld) [#/Vol] 1.89 10*3/uL [facility] Lymphocytes/100 WBC (Bld) 22.7 % 13.0 - 44.0 % [facility] MCH (RBC) [Entitic mass] 29.7 pg 26.0 - 34.0 pg [facility] MCHC (RBC) [Mass/Vol] 33 g/dL 32.0 - 36.0 g/dL [facility] MCV (RBC) [Entitic vol] 90 fL 80 - 100 fL [facility] Monocytes (Bld) [#/Vol] 0.48 10*3/uL [facility] Monocytes/100 WBC (Bld) 5.8 % 2.0 - 10.0 % [facility] Neutrophils (Bld) [#/Vol] 5.65 10*3/uL [facility] Comment on above: Percent differential counts (%) should be interpreted in the context of the absolute cell counts (cells/uL). Neutrophils/100 WBC (Bld) 68 % 40.0 - 80.0 % [facility] Nucleated RBC/100 WBC (Bld) [Ratio] 0 % [facility] Platelets (Bld) [#/Vol] 220 10*3/uL [facility] RBC (Bld) [#/Vol] 4.65 10*6/uL [facility] WBC (Bld) [#/Vol] 8.3 10*3/uL [facility] Basophils (Bld) [#/Vol] 0.08 x10*3/uL Normal 0.00-0.10 [facility] Comment on above: Performed By: #### 5 7021-8 #### [facility] ([id number]) [facility] ([facility]) [address] [place] [address] Basophils/100 WBC (Bld) 1.0 % Normal 0.0-2.0 [facility] Comment on above: Performed By: #### 7021-8 #### [facility]AD[facility] ([id number]) [facility] ([facility]) [address] [place] [address] Eosinophils (Bld) [#/Vol] 0.19 x10*3/uL Normal 0.00-0.70 [facility] Comment on above: Performed By: #### 7021-8 #### [facility] ([id number]) [facility] ([facility]) [address] [place] [address] Eosinophils/100 WBC (Bld) 2.3 % Normal 0.0-6.0 [facility] Comment on above: Performed By: #### 5 7021-8 #### [facility] ([id number]) [facility] ([facility]) [address] [place] [address] Erythrocyte distribution width (RBC) [Ratio] 11.9 % Normal 11.5-14.5 [facility] Comment on above: Performed By: #### 7021-8 #### [facility]AD[facility] ([id number]) [facility] ([facility]) [address] [place] [address] Hematocrit (Bld) [Volume fraction] 41.8 % Normal 36.0-46.0 [facility] Comment on above: Performed By: #### 7021-8 #### GLAD[facility] HOGUE ([id number]) [facility] ([facility]) [facility] [place] [address] Hemoglobin (Bld) [Mass/Vol] 13.8 g/dL Normal 12.0-16.0 [facility] Comment on above: Performed By: #### 5 7021-8 #### [facility] ([id number]) [facility] ([facility]) [address] [place] [address] Immature granulocytes (Bld) [#/Vol] 0.02 x10*3/uL Normal 0.00-0.70 [facility] Comment on above: Performed By: #### 5 7021-8 #### [facility] ([id number]) [facility] ([facility]) [address] [place] [address] Immature granulocytes/100 WBC (Bld) 0.2 % Normal 0.0-0.9 [facility] Comment on above: Result Comment: Mikayla ture Granulocyte Count (IG) includes promyelocytes, myelocytes and metamyelocytes but does not include bands. Percent differential counts (%) should be interpreted in the context of the absolute cell counts (cells/UL). Performed By: #### 5 7021-8 #### [facility] ([id number]) [facility] ([facility]) [address] [place] [address] Lymphocytes (Bld) [#/Vol] 1.89 x10*3/uL Normal 1.20-4.80 [facility] Comment on above: Performed By: #### 5 7021-8 #### [facility] ([id number]) [facility] ([facility]) [address] [place] [address] Lymphocytes/100 WBC (Bld) 22.7 % Normal 13.0-44.0 [facility] Comment on above: Performed By: #### 5 7021-8 #### [facility] ([id number]) [facility] ([facility]) [address] [place] [address]35 MCH (RBC) [Entitic mass] 29.7 pg Normal 26.0-34.0 [facility] Comment on above: Performed By: #### 5 7021-8 #### [facility] ([id number]) [facility] ([facility]) [address] [place] [address] 91733 MCHC (RBC) [Mass/Vol] 33.0 g/dL Normal 32.0-36.0 [facility] Comment on above: Performed By: #### 5 7021-8 #### GLAD[facility] HOGUE ([id number]) [facility] ([facility]) [address] [place] [address]13 MCV (RBC) [Entitic vol] 90 fL Normal 80-100 [facility] Comment on above: Performed By: #### 5 7021-8 #### GLAD[facility]OG[facility] ([id number]) [facility] ([facility]) [address] [place] [address] 23095 Monocytes (Bld) [#/Vol] 0.48 x10*3/uL Normal 0.10-1.00 [facility] Comment on above: Performed By: #### 5 7021-8 #### [facility]AD[facility] ([id number]) [facility] ([facility]) [address] [place] [address] 90258 Monocytes/100 WBC (Bld) 5.8 % Normal 2.0-10.0 [facility] Comment on above: Performed By: #### 5 7021-8 #### GLAD[facility]OG[facility] ([id number]) [facility] ([facility]) [address] [place] [address] 37602 Neutrophils (Bld) [#/Vol] 5.65 x10*3/uL Normal 1.20-7.70 [facility] Comment on above: Result Comment: Perc ent differential counts (%) should be interpreted in the context of the absolute cell counts (cells/uL). Performed By: #### 5 7021-8 #### [facility] ([id number]) [facility] ([facility]) [address] [place] [address]54 Neutrophils/100 WBC (Bld) 68.0 % Normal 40.0-80.0 [facility] Comment on above: Performed By: #### 5 7021-8 #### [facility] ([id number]) [facility] ([facility]) [address] [place] [address] 45[address] Nucleated RBC/100 WBC (Bld) [Ratio] 0.0 /100 WBCs Normal 0.0-0.0 [facility] Comment on above: Performed By: #### 5 7021-8 #### [facility] ([id number]) [facility] ([facility]) [address] [place] [address] 71001 Platelets (Bld) [#/Vol] 220 x10*3/uL Normal 150-450 [facility] Comment on above: Performed By: #### 5 7021-8 #### [facility] ([id number]) [facility] ([facility]) [address] [place] [address] 34839 RBC (Bld) [#/Vol] 4.65 x10*6/uL Normal 4.00-5.20 [facility] Comment on above: Performed By: #### 5 7021-8 #### GLAD[facility] HOGUE ([id number]) [facility] ([facility]) [address] [place] [address] 85863 WBC (Bld) [#/Vol] 8.3 x10*3/uL Normal 4.4-11.3 [facility] Comment on above: Performed By: #### 5 7021-8 #### GLADYS HOGUE ([id number]) [facility] ([facility]) [address] [place] [address] 36935 CRP [Mass/Vol]on 04-14-2025 Interpretation and review of laboratory results Normal [facility] Coagulation surface inducedo n 04-14-2025 aPTT Coag (PPP) [Time] 28 s Normal 26-36 [facility] Comment on above: Order Comment: The A PTT is no longer used for monitoring Unfractionated Heparin Therapy. For monitoring Heparin Therapy, use the Heparin Assay. Performed By: #### 1 4979-9 #### GLADYS HOGUE ([id number]) [facility] ([facility]) [address] [place] [address] Coagulation tissue factor in ducedon 04-14-2025 PT Coag (PPP) [Time] 11.9 s Normal 9.8-12.4 [facility] Comment on above: Performed By: #### 5 902-2 #### GLADYS HOGUE ([id number]) [facility] ([facility]) [address] [place] [address] ESR Westergren method (Bld) [Velocity]Ordered By: Kimberly Rudd on 04-14-2025 ESR (Bld) [Velocity] 7 mm/h 0 - 20 mm/h [facility] Interpretation and review of laboratory results Normal [facility] ESR Westergren method (Bld) [Velocity]on 04-14-2025 ESR (Bld) [Velocity] 7 mm/h Normal 0-20 [facility] Comment on above: Performed By: #### 4 537-7 #### GLADYS HOGUE ([id number]) [facility] ([facility]) [address] [place] [address] No Panel Informationon 04-14 Interpretation and review of laboratory results Normal [facility] PT Coag (PPP) [Time]on 04-14 INR Coag (PPP) [Relative time] 1.1 {INR} 0.9 - 1.1 [facility] INR Coag (PPP) [Relative time] 1.1 Normal 0.9-1.1 [facility] Comment on above: Performed By: #### 5 902-2 #### GLAD[facility] HOGUE ([id number]) [facility] ([facility]) [address] [place] [address] Protime-INRon 04-14-2025 PT Coag (PPP) [Time] 11.9 s [facility] VASC US LOWER EXTREMITY VENO US DUPLEX LEFTon 04-14-2025 VAS US LOWER EXTREM[place] [address] [phone], Vascular Lab Report VASC US LOWER EXTREMITY VENOUS DUPLEX LEFT Patient Name: ANAND MANRIQUEZ Reading Physician: [id number] Nixon Mixon MD, RPVI Study Date: 04/14/2025 Ordering Provider: [id number] TARI BLUE MRN/PID: [id number] Fellow: Technologist: Mindi Vargas RVT/AB Date of /Age: 10 2000 years Technologist 2: Gender: F Admission Status: Emergency Location Performed: [facility] Diagnosis/ICD: Pain in left lower leg-M79.662 CPT Codes: 12212 Peripheral venous duplex scan for DVT Limited CONCLUSIONS: Right Lower Venous: The right common femoral vein demonstrates normal spontaneous and respirophasic flow. Left Lower Venous: No evidence of acute deep vein thrombus visualized in the left lower extremity. Imaging & Doppler Findings: Right Flow CFV Spontaneous/Phasic Left Compress Thrombus Flow Distal External Iliac None CFV Yes None Spontaneous/Phasic PFV Yes None FV Proximal Yes None Spontaneous/Phasic FV Mid Yes None FV Distal Yes None Popliteal Yes None Spontaneous/Phasic Peroneal Yes None PTV Yes None [id number] Nixon Mixon MD, RPVI Final Normal [facility] aPTTon 04-14-2025 aPTT Coag (PPP) [Time] 28 [facility] (PPP) [Time]on The APTT is no longer used for monitoring Unfractionated Heparin Therapy. For monitoring Heparin Therapy, use the Heparin Assay. [facility] HCG ( test) Ql (U)o n 03-23-2025 Interpretation and review of laboratory results Normal [facility] Work Phone: Preg Test, Ur Negative Negative [facility] Work Phone: [facility] Work Phone: IUD Insertionon 03-23-2025 Angela Parker MD 03/23/2025 10:59 AM IUD Insertion Performed by: Angela Parker MD Authorized by: Angela Parker MD Procedure: IUD insertion Consent obtained by patient, parent, or legal power of commercial real estate attorney - including discussion of procedure risks and benefits, patient questions answered, and patient education provided: yes (verbal consent obtained after discussing risks benefits and alternatives) risk: reasonably certain the patient is not risk comment: Neg POC preg Date/Time of Insertion: 03/23/2025 10:46 AM Immediately prior to procedure a time out was called: yes Pelvic exam performed: no Speculum placed in vagina: yes Cervix cleaned and prepped: yes Tenaculum/Allis/Rin g Forceps applied to cervix: yes Anesthesia used: no Uterus sound depth (cm): 7 Cervix manually dilated: no IUD inserted without complications: yes Strings trimmed to (cm): 4 Patient tolerated procedure well: yes Inserted with ultrasound guidance: no Transvaginal sono confirmed fundal placement: no Estimated blood loss (mL): 0 Intended removal date: 8 years Insertion comments: Iud inserted wtihout difficulty, strings cut to 4cm [facility] Work Phone: [facility] Work Phone: Cervical AND or Vaginal cyto logy studyon 12-11-2024 Cytology Cervical or vaginal smear or scraping study Pathology report.total SEE COMMENT Gynecologic Cytology Case: [id number] Authorizing Provider: Angela Parker MD Collected: 12/11/2024906 Ordering Location: [facility] Received: 12/11/2024 0907 First Screen: HARSHAD Dorsey Specimen: ThinPrep Liquid-Based Pap-Imaging System Screen, CERVIX, SCREENING Cytology study comment SEE COMMENT A. THINPREP PAP CERVIX, SCREENING - Specimen Adequacy Satisfactory for evaluation; endocervical/transf ormation zone component is present General Categorization Negative for intraepithelial lesion or malignancy. Descriptive Interpretation Negative for intraepithelial lesion or malignancy Specimen does not meet the requisition-stated criteria for HPV testing. See Pap test interpretation above. Laboratory comment SEE COMMENT Slide(s) initially screened by HARSHAD Dorsey at [address] [address] By the signature on this report, the individual or group listed as making the Final Interpretation/Diag nosis certifies that they have reviewed this case. This specimen has been analyzed by the [employer] Imaging System ([employer] an automated imaging and review system, which assists the laboratory in evaluating cells on ThinPrep Pap tests. Following automated imaging, selected caba from every slide were reviewed by a brass sorter and/or pathologist. Cervical cytology is a screening procedure primarily for squamous cancers and precursors and has associated false-negative and false-positives results as evidenced by published data. Your patient's test should be interpreted in this context, together with the patient's history and clinical findings. Regular sampling and follow-up of unexplained clinical signs and symptoms are recommended to minimize false negative results. LAB AP HPV HR Reflex if ASCUS only LAB AP HPV GENOTYPE QUESTION Yes Normal [facility] Ambulatory C. trachomatis and N. gonorr hoeae DNA SCARLETT+probe Nom (Unsp spec)on 12-10-2024 C. trachomatis rRNA SCARLETT+probe Ql (Unsp spec) Negative Normal Negative [facility] Comment on above: Order Comment: The A PTIMA Combo 2 assay is FDA-approved NAAT using target capture for the in vitro qualitative detection and differentiation of ribosomal RNA (rRNA) for Chlamydia trachomatis and Neisseria gonorrhoeae testing on clinician-collected endocervical, PreservCyt solution liquid Pap specimens, vaginal, throat, rectal, and male urethral swab specimens; patient-collected vaginal swab specimens, and female and male urine specimens from symptomatic and asymptomatic individuals. Samples from all other sites are not validated for this method. Performed By: #### 3 6903-3 #### HAYLEY Miller ([id number]) [facility] ([facility]) [address] [place] [address] N. gonorrhoeae DNA Probe+sig amp Ql (Unsp spec) Negative Normal Negative [facility] Comment on above: Order Comment: The A PTIMA Combo 2 assay is FDA-approved NAAT using target capture for the in vitro qualitative detection and differentiation of ribosomal RNA (rRNA) for Chlamydia trachomatis and Neisseria gonorrhoeae testing on clinician-collected endocervical, PreservCyt solution liquid Pap specimens, vaginal, throat, rectal, and male urethral swab specimens; patient-collected vaginal swab specimens, and female and male urine specimens from symptomatic and asymptomatic individuals. Samples from all other sites are not validated for this method. Performed By: #### 3 6903-3 #### HAYLEY Miller ([id number]) [facility] ([facility]) [id number] [place] [address] Comprehensive metabolic 2000 panelon 12-10-2024 Albumin BCP dye [Mass/Vol] 5.0 g/dL Normal 3.4-5.0 [facility] Comment on above: Performed By: #### 2 4323-8 #### GLADYS HOGUE ([id number]) [facility] ([facility]) [address] [place] [address] 33470 ALP [Catalytic activity/Vol] 57 U/L Normal 33-110 [facility] Comment on above: Performed By: #### 2 4323-8 #### GLADYS HOGUE ([id number]) [facility] ([facility]) [address] [place] [address] 96292 ALT With P-5'-P [Catalytic activity/Vol] 13 U/L Normal 7-45 [facility] Comment on above: Result Comment: Genny ents treated with Sulfasalazine may generate falsely decreased results for ALT. Performed By: #### 2 4323-8 #### GLADYS HOGUE ([id number]) [facility] ([facility]) [address] [place] [address] 47370 Anion gap [Moles/Vol] 11 mmol/L Normal 10-20 [facility] Comment on above: Performed By: #### 2 4323-8 #### GLADYS HOGUE ([id number]) [facility] ([facility]) [address] [place] [address] 39246 AST With P-5'-P [Catalytic activity/Vol] 19 U/L Normal 9-39 [facility] Comment on above: Performed By: #### 2 4323-8 #### GLADYS HOGUE ([id number]) [facility] ([facility]) [address] [place] [address] 70924 Bilirubin [Mass/Vol] 0.5 mg/dL Normal 0.0-1.2 [facility] Comment on above: Performed By: #### 2 4323-8 #### GLADYS HOGUE ([id number]) [facility] ([facility]) [facility] [place] [address] Calcium [Mass/Vol] 9.4 mg/dL Normal 8.6-10.3 [facility] Comment on above: Performed By: #### 2 4323-8 #### GLADYS HOGUE ([id number]) [facility] ([facility]) [address] [place] [address] 02474 Chloride [Moles/Vol] 103 mmol/L Normal 98-107 [facility] Comment on above: Performed By: #### 2 4323-8 #### GLADYS HOGUE ([id number]) [facility] ([facility]) [address] [place] [address] 43502 CO2 [Moles/Vol] 29 mmol/L Normal 21-32 [facility] Comment on above: Performed By: #### 2 4323-8 #### GLADYS HOGUE ([id number]) [facility] ([facility]) [address] [place] [address] 09419 Creatinine [Mass/Vol] 0.78 mg/dL Normal 0.50-1.05 [facility] Comment on above: Performed By: #### 2 4323-8 #### GLADYS HOGUE ([id number]) [facility] ([facility]) [address] [place] [address] 83046 GFR/1.73 sq M.predicted MDRD (S/P/Bld) [Vol rate/Area] mL/min/{1.73_m2} Normal >60 [facility] Comment on above: Result Comment: Calc ulations of estimated GFR are performed using the 2020 CKD-EPI Study Refit equation without the race variable for the IDMS-Traceable creatinine methods. https://jasn.asnjournals.org/content/early//ASN.2020 082904 Performed By: #### 2 4323-8 #### GLADYS HOGUE ([id number]) [facility] ([facility]) [address] [place] [address] 35202 Glucose [Mass/Vol] 85 mg/dL Normal 74-99 [facility] Comment on above: Performed By: #### 2 4323-8 #### GLADYS HOGUE ([id number]) [facility] ([facility]) [address] [place] [address] 25002 Potassium [Moles/Vol] 3.8 mmol/L Normal 3.5-5.3 [facility] Comment on above: Performed By: #### 2 4323-8 #### GLADYS HOGUE ([id number]) [facility] ([facility]) [address] [place] [address] 33554 Protein [Mass/Vol] 7.5 g/dL Normal 6.4-8.2 [facility] Comment on above: Performed By: #### 2 4323-8 #### GLADYS HOGUE ([id number]) [facility] ([facility]) [address] [place] [address] 92099 Sodium [Moles/Vol] 139 mmol/L Normal 136-145 [facility] Comment on above: Performed By: #### 2 4323-8 #### GLADYS HOGUE ([id number]) [facility] ([facility]) [address] [place] [address] 28403 Urea nitrogen [Mass/Vol] 12 mg/dL Normal 6-23 [facility] Comment on above: Performed By: #### 2 4323-8 #### GLADYS HOGUE ([id number]) [facility] ([facility]) [address] [place] [address] 89883 HIV 1+2 Ab+HIV1 p24 Agon HIV 1+2 Ab+HIV1 p24 Ag IA Ql Non-Reactive Normal Nonreactive [facility] Comment on above: Order Comment: HIV A g/Ab screen is performed using the Siemens Firefly BioWorksll[employer] Exchange HIV Ag/Ab Combo assay which detects the presence of HIV p24 antigen as well as antibodies to HIV-1 (Group M and O) and HIV-2. No laboratory evidence of HIV infection. If acute HIV infection is suspected, consider testing for HIV RNA by PCR (viral load). Performed By: #### 5 6888-1 #### HAYLEY Miller ([id number]) [facility] ([facility]) [address] [place] [address] Hepatitis C virus Abon 12-10 HCV Ab Ql (S) Non-Reactive Normal Nonreactive [facility] Comment on above: Result Comment: Resu lts from patients taking biotin supplements or receiving high-dose biotin therapy should be interpreted with caution due to possible interference with this test. Providers may contact their local laboratory for further information. Performed By: #### 1 6128-1 #### HAYLEY Miller ([id number]) [facility] ([facility]) [address] [place] [address] Lipid 1996 panelon Cholesterol [Mass/Vol] 173 mg/dL Normal 0-199 [facility] Comment on above: Result Comment: Age Desirable Borderline High High 0-19 Y 0 - 169 170 - 199 >/= 200 20-24 Y 0 - 189 190 - 224 >/= 225 >24 Y 0 - 199 200 - 239 >/= 240 All ranges are based on fasting samples. Specific therapeutic targets will vary based on patient-specific cardiac risk. Pediatric guidelines reference:Pediatrics 2011, 128(S5).Adult guidelines reference: NCEP ATPIII Guidelines,ARIC 2001, 258:2486-97 Venipuncture immediately after or during the administration of Metamizole may lead to falsely low results. Testing should be performed immediately prior to Metamizole dosing. Performed By: #### 2 4331-1 #### GLADYS HOGUE ([id number]) [facility] ([facility]) [address] [place] [address] 94314 Cholesterol in HDL [Mass/Vol] 66.0 mg/dL Normal [facility] Comment on above: Result Comment: Age Very Low Low Normal High 0-19 Y < 35 < 40 40-45 ---- 20-24 Y ---- < 40 >45 ---- >24 Y ---- < 40 40-60 >60 Performed By: #### 2 4331-1 #### GLADYS HOGUE ([id number]) [facility] ([facility]) [facility] [place] [address] Cholesterol in LDL [Mass/Vol] 98 mg/dL Normal <=119 [facility] Comment on above: Result Comment: Near Borderline AGE Desirable Optimal High High Very High 0-19 Y 0 - 109 --- 110-129 >/= 130 ---- 20-24 Y 0 - 119 --- 120-159 >/= 160 ---- >24 Y 0 - 99 100-129 130-159 160-189 >/=190 Performed By: #### 2 4331-1 #### GLADYS HOGUE ([id number]) [facility] ([facility]) [address] [place] [address] Cholesterol in VLDL [Mass/Vol] 9 mg/dL Normal 0-40 [facility] Comment on above: Performed By: #### 2 4331-1 #### GLADYS HOGUE ([id number]) [facility] ([facility]) [facility] [place] [address] CHOLESTEROL/HDL RATIO 2.6 Normal [facility] Comment on above: Result Comment: Ref Values Desirable < 3.4 High Risk > 5.0 Performed By: #### 2 4331-1 #### GLADYS HOGUE ([id number]) [facility] ([facility]) [address] [place] [address] NON HDL CHOLESTEROL 107 mg/dL Normal 0-149 [facility] Comment on above: Result Comment: Age Desirable Borderline High High Very High 0-19 Y 0 - 119 120 - 144 >/= 145 >/= 160 20-24 Y 0 - 149 150 - 189 >/= 190 ---- >24 Y 30 mg/dL above LDL Cholesterol goal Performed By: #### 2 4331-1 #### GLADYS HOGUE ([id number]) [facility] ([facility]) [facility] [place] [address] Triglyceride [Mass/Vol] 47 mg/dL Normal 0-114 U [facility] Comment on above: Result Comment: Age Desirable Borderline High Very High SEX:B mg/dL mg/dL mg/dL mg/dL <=14D 86-277 ---- ---- ---- 15D-365D 55-277 ---- ---- ---- 1Y-9Y 0-74 75-99 >=100 ---- 10Y-19Y 0-89 90-129 >=130 ---- 20Y-24Y 0-114 115-149 >=150 ---- >= 25Y 0-149 150-199 200-499 >=500 Venipuncture immediately after or during the administration of Metamizole may lead to falsely low results. Testing should be performed immediately prior to Metamizole dosing. Performed By: #### 2 4331-1 #### GLADYS HOGUE ([id number]) [facility] ([facility]) [address] [place] [address] TSH WITH REFLEX TO FREE T4 I F ABNORMALon 12-10-2024 TSH Qn 1.91 m[IU]/L Normal 0.44-3.98 [facility] Comment on above: Order Comment: TSH t esting is performed using different testing methodology at [facility] than at other [facility]. Direct result comparisons should only be made within the same method. Performed By: #### T HYDS #### GLADYS HOGUE ([id number]) [facility] ([facility]) [address] [place] [address] POCT UA Automated manually r esultedon 09-08-2024 Appearance (U) Clear Clear [facility] Work Phone: Glucose Test strip (U) [Mass/Vol] Negative NEGATIVE mg/dl [facility] Work Phone: Hemoglobin Ql (U) TRACE-Intact Abnormal NEGATIVE [facility] Work Phone: Interpretation and review of laboratory results Abnormal [facility] Work Phone: Leukocyte esterase Test strip Ql (U) Negative NEGATIVE [facility] Work Phone: Nitrite Ql (U) Negative NEGATIVE [facility] Work Phone: pH (U) 7.0 [pH] No Reference Range Established [facility] Work Phone: POC Bilirubin, Urine Negative NEGATIVE [facility] Work Phone: POC Color, Urine Yellow Straw, [place] ow, Light-Yellow [facility] Work Phone: POC Ketones, Urine Negative NEGATIVE mg/dl [facility]: POC Protein, Urine Negative NEGATIVE, 30 (1+) mg/dl [facility] Work Phone: POC Specific [place], Urine 1.025 1.005 - 1.035 [facility] Work Phone: POC Urobilinogen, Urine 0.2 0.2, 1.0 EU/ DL [facility] Work Phone: [facility] Work Phone: VAGINITIS GRAM STAIN FOR NELLIE TERIAL VAGINOSIS + YEASTon 06-27-2023 CLUE CELLS ABSENT Normal [facility]3] Comment on above: Performed By: #### G SVAG #### [facility] [address] [place] [address] RAE SCORE 2 Normal [facility]3] Comment on above: Result Comment: Inte rpretation of the Rae Score 0-3.....Normal vaginal microbiota 4-6.....Intermediate results 7-10....Bacterial vaginosis Performed By: #### G SVAG #### [facility] [address] [place] [id number] Yeast LM Ql (Urine sed) ABSENT Normal [facility] Comment on above: Performed By: #### G SVAG #### [facility] [address] [place] [id number] Provider Note - ED v3on 08-0 Provider Note - ED v3 Provider Note: Results/Vital Signs: Pediatric Clinical Scoring (RUDY) is no recent RUDY charted on this account Chart Review: ED NOTES ED NOTES: Patient presents for evaluation of vaginal discharge and irritation and burning with urination is ongoing for the past few days. Denies abdominal pains, nausea vomiting/diarrhea, discharge odor, urinary urgency, urinary frequency, body aches or any other associated symptom or complaint. Patient states she is sexually active but is not concerned for STDs. States she recently started pelvic floor therapy with a vaginal insert and noticed vaginal irritation since using it. HISTORY OF PRESENTING ILLNESS ANAND is a 22 year old Female and was seen by me at 26-Jun-2023 14:54. Triage Information: Most recent Vital Sign Value Date PAST MEDICAL HISTORY ALLERGIES/INTOLERAN SHASHA: No Known Allergies HEALTH HISTORY: No documented data. OUTPATIENT MEDICATIONS: Home Medications Review Status for Reconciliation: Complete Med Status: Patient Currently Takes Medications Drug Name: CONTROL Instructions: null Drug Name: Diflucan 150 mg oral tablet Instructions: 1 tab(s) orally once today and then again in 3 days SIGNIFICANT EVENTS: No documented data. INSIDE TRUCKER: Is : no Is : no REVIEW OF SYSTEMS All other systems reviewed and are negative REVIEW OF SYSTEMS: Comments See HPI PHYSICAL EXAM CONSTITUTIONAL: Well appearing, well nourished, awake, alert, oriented to person, place, time/situation and in no apparent distress. GENITOURINARY: Thick white vaginal discharge without odor per pt report. No lesions. No CVA or suprapubic tenderness. NEUROLOGICAL: Alert and oriented, no focal deficits, no motor or sensory deficits. SKIN: Skin normal color for race, warm, dry and intact. No evidence of trauma. PSYCHIATRIC: Alert and oriented to person, place, time/situation. normal mood and affect. No apparent risk to self or others. CRITICAL CARE VITAL SIGNS: T PRBP SpO2O2(LPM) %FiO2 Method 26-Jun-2023 14:47:[id number] MDM MDM/ED COURSE: Discussed Findings with: patient Data Reviewed: vital signs Awaiting: lab results Treatment Plan: POC UA negative leukocytes, negative nitrates, urobilinogen 0.2, negative protein, pH 6.0, trace intact blood, specific gravity 1.005, negative ketones, negative bilirubin, negative glucose. Rx diflucan. Vaginal self swab obtained for BV and yeast. Patient's clinical presentation is otherwise unremarkable at this time. Patient is discharged with instructions to follow-up with primary care or seek emergency medical attention for worsening symptoms or any new concerns. DISPOSITION Diagnosis/Annotatio n: ED Dx Name:Vaginitis Code:N76.0 Name:Vaginal discharge Code:N89.8 Disposition: discharged Type: home CONSULT CRITICAL CARE TIME Is this a critically ill patient: no Electronic Signatures: Kodi Ramsey (STOCK MOVER-HOT MILL OPERATOR) (Signed 26-Jun-2023 15:19) Authored: ED Notes, HPI, PMH, ROS, PE, Results/Vital Signs, MDM/ED Course, Clinical Impression, Attestation, Chart Review, Scores Last Updated: 26-Jun-2023 15:19 by Kodi Ramsey (STOCK MOVER-HOT MILL OPERATOR) [facility] Phone Msgon 04-05-2023 Phone Msg -- From: JEAN-PIERRE LEE CNP To: ANAND MANRIQUEZ Sent: 04/05/2023 08:04:03 EDT Subject: normal pap Anand, Good news your pap smear was normal. Have a great day. Jean-Pierre Lee CNP Normal [facility] THIN PREP IMAGE SEND OUTon 0 04-05-2023 THIN PREP IMAGE SEND OUT See Report Normal [facility] Comment on above: Order Comment: Order ed on Fin# [id number] Performed By: #### C [id number] #### [facility] [address] [place], [place] [id number] Personal Protection Specialist: MD Geovanni Camp Office-Progress Notes-Pr ovideron 03-27-2023 Amb Office-Progress Notes-Provider Assessment/Plan This Visit Diagnosis 1. Well woman exam Z01.419 2. Cervical cancer screening Z12.4 Ordered: THIN PREP IMAGE SEND OUT, ROUTINE, 03/26/2023, Specimen type: DUST COLLECTOR OPERATOR Spec, Dx: Cervical cancer screening 3. Irregular periods N92.6 4. Body mass index (BMI) less than 16.5 Z68.1 need to have estrogen exposure risks for osteoporosis 5. Dysmenorrhea N94.6 control as risks for endometriosis start blisovi Chief Complaint New pt Annual, first pap stopped taking b.c 07/2022 and her periods have been irregular cycles have been 60 days has taken preg test and they come back neg History of Present Illness New patient irregular periods 60 days cycles she stopped ocp 2021= ? she wanted to see if she could control naturally she referred to her binder- she charts the pain off pill she reports has improved h/o dysmenorrhea and irregular periods as adolescent missed school she gets diarrhea with periods she tried Kariva and didn't like- she liked blisovi bmi 16 eating healthy not too much exercise new partners- no pain with intercourse- deep we discussed bone health as well she has family history of osteoporosis she also has h/o enodmetriosis we discussed preventing pain as this can protect fertility and protecting bones I recommend OCP Physical Exam Vitals & Measurements BP: 100/58 HT: 163 cm WT: 42.9 kg BMI: 16.15 LMP: 03/23/2023 00:00 EDT Depression Screening Scores Initial Depression Screen Score: 0 (03/26/23 09:07:00) Fall Risk Assessment Is the patient ambulatory (mobile): Yes (03/26/23 09:07:00) Have you had a fall within the past: No (03/26/23 09:07:00) Have you had 2 or more falls in the past: No (03/26/23 09:07:00) Constitutional: Appears appropriate for age, non-toxic, and comfortable. No signs of apparent distress present. Speech is clear and appropriate. Stand comfortably erect. Patient is cooperative. VSS and reviewed Eyes: Full range of extra-ocular motion. Conjunctivae clear. Neck: supple and no thyromegaly Respiratory: Chest expansion is adequate bilaterally. Abdomen: Soft and Non-tender, Non distended Musculoskeletal: Walks with a normal gait. Motor strength is intact Ext: No C/C/E Skin: Warm and dry with no evidence of unusual rashes or suspicious lesions. Neurological: Alert and oriented x 3. Mood is normal. Extremities: No clubbing, Cyanosis or edema DUST COLLECTOR OPERATOR EXAM: Breast exam: normal bilateral breast tissue, no skin changes no masses and no nipple discharge, no LAD Pelvic Exam: Ext Gen: normal Vulva anatomy no rash Perineum: no lesions and intact Vagina: no cystocele or rectocele vaginal mucosa healthy pink Cervix: no CMT, discharge present normal Bladder: non tender on palpation Uterus: normal size and mobile midline, NT adnexa: NT and no masses Pelvic muscles: normal muscle tauntness/support DUST COLLECTOR OPERATOR Additional Details-Patient Stated Menstrual History Last Menstrual Kibjsn6703/23/2023 OB History History (0,0,0,0) No previous pregnancies history have been recorded Problem List/Past Medical History Ongoing No qualifying data Historical No qualifying data Procedure/Surgical History Gardasil vaccine series completed (2012) Medications No active medications Allergies No Known Medication Allergies Social History Alcohol Current, 1-2 times per month Sexual Sexually active: Yes. Uses condoms: Yes. Substance Abuse Current, Marijuana, 1-2 times per month Tobacco Electronic Cigarette Family History Family history is negative Normal [facility] Ambulatory Clinical Summaryo n 03-26-2023 Ambulatory Clinical Summary ANAND MANRIQUEZ :2000 Visit Date:03/26/2023 Ambulatory Visit Instructions Your Diagnosis Well woman exam Cervical cancer screening Irregular periods Body mass index (BMI) less than 16.5 Dysmenorrhea Your Care Team Attending Physician - NEHEMIAS ROWLEY Primary Care Physician - STAN CHAUHAN Procedures Performed Gardasil vaccine series completed (2012) Discharge Vitals Blood Pressure 100/58 Height 163 cm Weight 42.9 kg BMI 16.15 Systolic Blood Pressure: 100 mmHg (03/26/23 09:07:00) Diastolic Blood Pressure: 58 mmHg Low (03/26/23 09:07:00) Mean Arterial Pressure: 72 mmHg (03/26/23 09:07:00) Height/Length Measured: 163 cm (03/26/23 09:07:00) Weight Measured: 42.9 kg (03/26/23 09:07:00) Body Mass Index Measured: 16.15 kg/m2 (03/26/23 09:07:00) Weight Measured - lbs2: 94 lb (03/26/23 09:07:00) Height/Length Measured - in2: 64 in (03/26/23 09:07:00) Body Mass Index Measured English2: 16.13 kg/m2 (03/26/23 09:07:00) BSA: 1.39 m2 (03/26/23 09:07:00) Ht/Wt Measurement Refused by Patient?2: No (03/26/23 09:07:00) Last Menstrual Period: 03/23/23 (03/26/23 09:07:00) What to do next Scheduled Follow-Up Appointments No results You Need to Schedule the Following Appointments THIN PREP IMAGE SEND OUT, ROUTINE, 03/26/2023, Specimen type: DUST COLLECTOR OPERATOR Spec, Dx: Cervical cancer screening Allergies No Known Medication Allergies Common Emergency Awareness Tips IS IT A STROKE? Act FAST and Check for these signs: FACE Does the face look uneven? ARM Does one arm drift down? SPEECH Does their speech sound strange? TIME Call at any sign of stroke Heart Attack Signs Chest discomfort: Most heart attacks involve discomfort in the center of the chest and lasts more than a few minutes, or goes away and comes back. It can feel like uncomfortable pressure, squeezing, fullness or pain. Discomfort in upper body: Symptoms can include pain or discomfort in one or both arms, back, neck, jaw or stomach. Shortness of breath: With or without discomfort. Other signs: Breaking out in a cold sweat, nausea, or lightheaded. Remember, MINUTES DO MATTER. If you experience any of these heart attack warning signs, call to get immediate medical attention! Normal [facility] Comprehensive Intake - Texto n 03-26-2023 Comprehensive Intake - Text Comprehensive Intake Entered On: 03/26/2023 9:12 EDT Performed On: 03/26/2023 9:07 EDT by Esperanza Higgins MA Summary Chief Complaint : New pt Annual, first pap stopped taking b.c 07/2022 and her periods have been irregular cycles have been 60 days has taken preg test and they come back neg Last Menstrual Period : 03/23/2023 EDT Bladder Control Issues? : No Urine Leakage? : No Presence or absence of urinary incontinence assessed : Yes CPT-II Medication list doc'd in medical record : Yes Influenza immunization administered or previously received : No Pneumococcal vaccine administered or previously received : No Esperanza Higgins MA - 03/26/2023 9:07 EDT Measurements Ht/Wt Measurement Refused by Patient? : No Weight Measured : 42.9 kg(Converted to: 94 lb 9 oz, 94.578 lb) Height/Length Measured : 163 cm(Converted to: 5 ft 4 in, 64.17 in) Body Mass Index Measured : 16.15 kg/m2 Body Mass Index documented : Yes Weight Measured - lbs : 94 lb(Converted to: 94 lb 0 oz, 43 kg) Height/Length Measured - in : 64 in(Converted to: 5 ft 4 in, 163 cm) Body Mass Index Measured Dominican : 16.13 kg/m2 BSA Dominican : 1.39 m2 Esperanza Higgins MA - 03/26/2023 9:07 EDT Vitals Require BP : Yes Systolic Blood Pressure : 100 mmHg Diastolic Blood Pressure : 58 mmHg (LOW) Mean Arterial Pressure : 72 mmHg Last Systolic BP : less than 130 mmHg Last Diastolic BP : less than 80 mmHg Pain Present : No actual or suspected pain Pain : 0 Pain severity quantified : No pain present Esperanza Higgins MA - 03/26/2023 9:07 EDT Infection Screening - Ambulatory Exposure AND/OR close contact with a person under investigation or laboratory-confirme d COVID-19 individual within 14 days of symptom onset AND/OR any of the following: : No Do you live/work in a high risk situation (congregated living, hemodialysis, infusion clinic, prison, assisted living, assisted, homeless assisted, etc.)? : No Esperanza Higgins MA - 03/26/2023 9:07 EDT Depression Screening Is patient currently : None of the Below Feeling Down, Depressed, Hopeless : Not at all Little Interest - Pleasure in Activities : Not at all Initial Depression Screen Score : 0 Depression Screening Score 0 : No Esperanza Higgins MA - 03/26/2023 9:07 EDT Falls Risk Assessment Is the patient ambulatory (mobile) : Yes Have you had 2 or more falls in the past year : No Have you had a fall within the past year that has caused an injury : No Patient screen for fall risk : no falls in last year OR 1 fall with no injury in last year Esperanza Higgins MA - 03/26/2023 9:07 EDT Normal [facility] SDOH Screening Assessment - Texton 03-26-2023 SDOH Screening Assessment - Text Social Determinants of Health Screening Assessment Entered On: 03/26/2023 9:15 EDT Performed On: 03/26/2023 9:14 EDT by Esperanza Higgins MA Social Determinants of Health (SDOH) - screen 1. Is the patient agreeable to providing responses to the SDOH Screening Assessment? : Yes Responses obtained from : Patient Esperanza Higgins MA - 03/26/2023 9:14 EDT Social Determinants of Health (SDOH) - assessment 2. Does the patient reside in a Care Home, Assisted Living Facility, or Half-Way? : No 3. What is your living situation? : I have a steady place to live 4. Within the past 12 months, the food you bought just didn't last and you didn't have money to get more? : No 5. Within the past 12 months, you worried that your food would run out before you got money to buy more? : No 6. In the past 12 months has, the [employer], gas, oil, or water [employer] threatened to shut off services to your home? : No 7. In the past 12 months, has lack of reliable transportation kept you from medical appointments? : No 8. In the past 12 months, has lack of reliable transportation kept you from meetings, work, or getting things needed for daily living? : No 9. How hard is it for you to pay for your prescriptions? : Not hard at all 10. If for any reason you need help with day-to-day activities such as bathing, preparing meals, shopping, managing finances, etc., do you get the help you need? : Don't need help Is the patient an Ambulatory patient type? : Yes 11. (AMBULATORY ONLY) Do you know the names of the medications you need to take and why? : Yes Does the patient agree with the above consent? : Yes Esperanza Higgins MA - 03/26/2023 9:14 EDT Normal [facility] Auto Diffon 10-27-2018 Basophils Auto #/vol (Bld) 0.1 E3/mcL Normal 0.0-0.2 [facility] Comment on above: Order Comment: Order Added by Discern Expert. Performed By: #### 2 [id number] ####ANEUDY KvyOufg8916 [place] [address] Basophils/100 WBC Auto (Bld) 0.7 % Normal 0.0-2.0 [facility] Comment on above: Order Comment: Order Added by Jez Expert. Performed By: #### 2 [id number] ####ANEUDY TfxOrlh1744 [place] [address] Eos Absolute 0.1 E3/mcL Normal 0.0-0.7 [facility] Comment on above: Order Comment: Order Added by Discern Expert. Performed By: #### 2 [id number] ####ANEUDY SteenOxkObwf2219 [place] [address] Eosinophils/100 WBC Auto (Bld) 0.8 % Normal 0.0-11.0 [facility] Comment on above: Order Comment: Order Added by Discern Expert. Performed By: #### 2 [id number] ####ANEUDY [address] [place] [address] Lymphocytes Auto #/vol (Bld) 2.4 E3/mcL Normal 1.2-3.4 [facility] Comment on above: Order Comment: Order Added by Discern Expert. Performed By: #### 2 [id number] ####ANEUDY [address] [place] [address] Lymphocytes/100 WBC Auto (Bld) 26.9 % Normal 20.0-55.0 [facility] Comment on above: Order Comment: Order Added by Discern Expert. Performed By: #### 2 [id number] ####ANEUDY AisLbwz6200 [place] [address] [place] Absolute 0.5 E3/mcL Normal 0.0-0.7 [facility] Comment on above: Order Comment: Order Added by Jez Expert. Performed By: #### 2 [id number] ####ANEUDY UlnJkcq9431 [place] [address] Monocytes/100 WBC Auto (Bld) 5.0 % Normal 0.0-10.0 [facility] Comment on above: Order Comment: Order Added by Discern Expert. Performed By: #### 2 [id number] ####ANEUDY SwwKkxw5612 [place] [address] Neutro Absolute 6.0 E3/mcL Normal 1.4-6.5 [facility] Comment on above: Order Comment: Order Added by Discern Expert. Performed By: #### 2 [id number] ####ANEUDY SteenJdkPvwl8643 [place] [address] Neutro Auto 66.6 % Normal 37.0-75.0 [facility] Comment on above: Order Comment: Order Added by Discern Expert. Performed By: #### 2 [id number] ####ANEUDY [address] [place] [address] CBC w/ Auto Diffon 8 Erythrocyte distribution width Auto Ratio (RBC) 13.3 % Normal 11.5-14.5 [facility] Comment on above: Performed By: #### 2 [id number] ####ANEUDY [address] [place] [address] Hematocrit Auto Volume Fraction (Bld) 40.3 % Normal 36.0-48.0 [facility] Comment on above: Performed By: #### 2 049838 ####ANEUDY [address] [place] [address] Hemoglobin mass conc (Bld) 13.7 g/dL Normal 12.0-16.0 [facility] Comment on above: Performed By: #### 2 [id number] ####ANEUDY [address] [place] [address] MCH Auto Entitic mass (RBC) 29.6 pg Normal 27.0-31.0 [facility] Comment on above: Performed By: #### 2 [id number] ####ANEUDY [address] [place] [address] MCHC Auto mass conc (RBC) 34.0 g/dL Normal 33.0-37.0 [facility] Comment on above: Performed By: #### 2 [id number] ####ANEUDY [address] [place] [address] MCV Auto Entitic volume (RBC) 86.9 fL Normal 78.0-100.0 [facility] Comment on above: Performed By: #### 2 [id number] ####ANEUDY [address] [place] [address] Platelet mean volume Auto Entitic volume (Bld) 7.0 fL Low 7.4-11.0 [facility] Comment on above: Performed By: #### 2 [id number] ####ANEUDY SteenHhhPphh7941 [place] [address] Platelets Auto #/vol (Bld) 253 E3/mcL Normal 130-400 [facility] Comment on above: Performed By: #### 2 [id number] ####ANEUDYElisabeth GonzalesHcwTvai2429 [place] [address] RBC Auto #/vol (Bld) 4.64 E6/mcL Normal 3.90-5.40 [facility] Comment on above: Performed By: #### 2 847616 ####ANEUDY [address] [place] [address] WBC Auto #/vol (Bld) 9.0 E3/mcL Normal 3.6-11.0 [facility] Comment on above: Performed By: #### 2 014113 ####ANEUDY [address] [place] [address] CMPon 10-27-2018 Albumin mass conc 4.7 g/dL Normal 3.4-5.0 [facility] Comment on above: Performed By: #### 2 810245 ####ANEUDY SteenNsnYxgm8982 [place] [address] Albumin/Globulin mass ratio 2.0 {ratio} High 1.1-1.9 [facility] Comment on above: Performed By: #### 2 873208 ####ANEUDY Jara[address]25 [place] [address] Alk Phos 51 Int._Unit/L Normal 33-139 [facility] Comment on above: Performed By: #### 2 196701 ####ANEUDY [address]bFadu[address] [place] [address] ALT enzyme act/vol 14 Int._Unit/L Normal 7-45 [facility] Comment on above: Performed By: #### 2 [id number] ####ANEUDY SteenIxbZfod8007 [place] [address] Anion gap 3 molar conc 9 mmol/L Low 10-20 [facility] Comment on above: Performed By: #### 2 125120 ####ANEUDY SteenOryKpdc7428 [place] [address] AST enzyme act/vol 18 Int._Unit/L Normal 9-39 [facility] Comment on above: Performed By: #### 2 [id number] ####ANEUDY SteenCrhTvvv4024 [place] [address] Bili Total 0.68 mg/dL Normal 0.00-1.20 [facility] Comment on above: Performed By: #### 2 038444 ####ANEUDY PlvYjit3965 [place] [address] Calcium mass conc 9.4 mg/dL Normal 8.5-10.7 [facility] Comment on above: Performed By: #### 2 732074 ####ANEUDY VhnDtda6881 [place] [address] Chloride molar conc 107 mmol/L Normal 98-107 [facility] Comment on above: Performed By: #### 2 118331 ####ANEUDY IdkIgky6897 [place] [address] CO2 molar conc 25.0 mmol/L Normal 21.0-32.0 [facility] Comment on above: Performed By: #### 2 901394 ####ANEUDY GliHcwf4841 [place] [address] Creatinine mass conc 0.9 mg/dL Normal 0.5-1.1 [facility] Comment on above: Performed By: #### 2 012479 ####ANEUDY JlqNzmr1054 [place] [address] Globulin Calculated mass conc (S) 2.0 g/dL Normal 2.0-4.0 [facility] Comment on above: Performed By: #### 2 638435 ####ANEUDY XjzAcsg6834 [place] [address] Glucose mass conc 114 mg/dL High 70-99 [facility] Comment on above: Performed By: #### 2 486914 ####ANEUDY JvrHikx1696 [place] [address] Potassium molar conc 3.2 mmol/L Low 3.5-5.3 [facility] Comment on above: Performed By: #### 2 137247 ####ANEUDY YtiIlko0246 [place] [address] Protein mass conc 7.1 g/dL Normal 6.4-8.2 [facility] Comment on above: Performed By: #### 2 811035 ####ANEUDY HuqDzux6309 [place] [address] Sodium molar conc 137 mmol/L Normal 136-145 [facility] Comment on above: Performed By: #### 2 [id number] ####ANEUDY ZpiHzdg1832 [place] [address] Urea nitrogen mass conc 12 mg/dL Normal 6-23 [facility] Comment on above: Performed By: #### 2 277232 ####ANEUDY JuaBznf6617 [place] [address] Urea nitrogen/Creatinine mass ratio 13.3 ratio Normal 5.4-30.0 [facility] Comment on above: Performed By: #### 2 883280 ####ANEUDY XyaGyqp0629 [place] [address] Lipase Levelon 10-27-2018 Lipase Lvl 19 Int._Unit/L Normal [facility] Comment on above: Performed By: #### 2 804150 ####ANEUDY ZykWkoe5189 [place] [address] U BhCG Qlton 10-27-2018 HCG.beta subunit Qn Negative Normal Neg [facility] Comment on above: Performed By: #### 2 137242 ####ANEUDY Urinalysis Manual Qomupecuog4476 [place] [address] UA Completeon 10-27-2018 Color Nom (U) Yellow Normal Yellow [facility] Comment on above: Performed By: #### 8 [id number] ####ANEUDY Urinalysis Automated Of[address]axnqrc2016 [place] [address] Glucose mass conc (U) Negative Normal Negative [facility] Comment on above: Performed By: #### 8 [id number] ####ANEUDY Urinalysis Automated [address] [place] [id number] Ketones Ql (U) Negative Normal Negative [facility] Comment on above: Performed By: #### 8 [id number] ####ANEUDY Urinalysis Automated Ayumxzhoab[address] [place] [address] RBC Test strip #/vol (U) 0-3 Normal 0-3 [facility] Comment on above: Performed By: #### 8 [id number] ####ANEUDY Urinalysis Automated Fjzochjogv4074 [place] [address] UA Blood 2+ Abnormal Negative [facility] Comment on above: Performed By: #### 8 [id number] ####ANEUDY Urinalysis Automated Qlbjwgxfae6472 [place] [address] UA Bacteria 1+ /HPF Abnormal None [facility] Comment on above: Performed By: #### 8 [id number] ####ANEUDY Urinalysis Automated Mmyomlsrus5817 [place] [address] UA Clarity SltCloudy Abnormal Clear [facility] Comment on above: Performed By: #### 8 [id number] ####ANEUDY Urinalysis Automated Xljhlxaczo4491 [place] [address] UA Leuk Est 2+ Abnormal Negative [facility] Comment on above: Performed By: #### 8 [id number] ####ANEUDY Urinalysis Automated [address] [place] [address] UA Mucous Many Abnormal Trace [facility] Comment on above: Performed By: #### 8 [id number] ####ANEUDY Urinalysis Automated [address] [place] [address] UA Nitrite Negative Normal Negative [facility] Comment on above: Performed By: #### 8 [id number] ####ANEUDY Urinalysis Automated [address]bekr[address] [place] [address] UA pH 5.0 Normal 4.6-8.0 [facility] Comment on above: Performed By: #### 8 [id number] ####ANEUDY Urinalysis Automated [address] [place] [address] UA Protein Negative Normal Negative [facility] Comment on above: Performed By: #### 8 [id number] ####ANEUDY Urinalysis Automated Zcribbatcg4574 [place] [address] UA Spec Grav 1.019 Normal 1.003-1.030 [facility] Comment on above: Performed By: #### 8 [id number] ####ANEUDY Urinalysis Automated [address]zdbqs6[address] [place] [address] UA Squam Epithelial 0-5 Normal 0-5 [facility] Comment on above: Performed By: #### 8 [id number] ####ANEUDY Urinalysis Automated [address] [place] [address] UA Urobilinogen Negative Normal [facility] Comment on above: Result Comment: Due to a manufacturing issue, low positive urobilinogen results may be fasely positive. Correlate with urine bilirubin and additional clinical/laboratory findings to assess the risk of hemolytic anemia or liver disease. If clinically indicated, repeat testing with an alternate method is available by contacting the laboratory within 24 hours. Performed By: #### 8 [id number] ####ANEUDY Urinalysis Automated [address]xpofghz0210 [place] [address] UA WBC 10-20 Abnormal 0-5 [facility] Comment on above: Performed By: #### 8 [id number] ####ANEUDY Urinalysis Automated Rukkxqnxma6031 [place] [address] Urobilinogen Test strip Qn (U) Negative Normal Negative [facility] Comment on above: Performed By: #### 8 [id number] ####ANEUDY Urinalysis Automated Uslnrloydw5364 [place] [address] XR Abdomen 1 Viewon 10-27-20 18 XR Abdomen 1 View Exam Date/Time:10/27/2018 19:19 ESTReason for Exam:ConstipationRe portSTUDY:XR Abdomen 1 View; 10/27/2018 7:19 pmINDICATION:Jacquelin yu.COMPARISON:N one. [id number] CLINICIAN:Adelso MichaelsFINDINGS:Ther e are no dilated loops of large or small bowel.There is a mild colonic stool burden.There is no evidence of free intraperitoneal air within the limitations of a supine examination.No pneumatosis or portal venous gas identified.No acute osseous abnormalities. The lung bases are clear.IMPRESSION:No nobstructive bowel gas pattern.Mild colonic stool burden. FINAL REPORT Dictated: 10/27/2018 7:44 pm Stacy Mitchell MDigned (Electronic Signature): 10/27/2018 7:44 pmSigned by: Sunny Mitchell MD Technologist: [facility] Normal [facility] eGFRon 10-27-2018 eGFR AA >60 [facility] Comment on above: Order Comment: Order added by Discern Expert. Performed By: #### 1 [id number] ####ANEUDY AutYvtz6214 [place] [address] GFR/1.73 sq M predicted among non-blacks MDRD vol rate/area (S/P/Bld) mL/min/{1.73_m2} Normal [facility] Comment on above: Order Comment: Order added by Discern Expert. Performed By: #### 1 [id number] ####ANEUDY MhvTvmo7404 [place] [address] Vital Signs Date Time Vital Sign Value Performing Clinician Facility 06-04-2025 11:44-0400 Body height 162.6 cm Angela Parker MD Work Phone: [facility] 06-04-2025 11:44-0400 Body mass index (BMI) [Ratio] 17.85 kg/m2 Angela Parker MD Work Phone: [facility] 06-04-2025 11:44-0400 Body weight 47.17 kg Angela Parker MD Work Phone: [facility] 06-04-2025 11:44-0400 Diastolic blood pressure 78 mm[Hg] Angela Parker MD Work Phone: [facility] 06-04-2025 11:44-0400 Heart rate 71 /min Angela Parker MD Work Phone: [facility] 06-04-2025 11:44-0400 SaO2% (BldA) [Mass fraction] 100 % Angela Parker MD Work Phone: [facility] 06-04-2025 11:44-0400 Systolic blood pressure 98 mm[Hg] Angela Parker MD Work Phone: [facility] 05-04-2025 11:45-0400 Body height 162.6 cm Angela Parker MD Work Phone: [facility] 05-04-2025 11:45-0400 Body mass index (BMI) [Ratio] 18.02 kg/m2 Angela Parker MD Work Phone: [facility] 05-04-2025 11:45-0400 Body weight 47.63 kg Angela Parker MD Work Phone: [facility] 05-04-2025 11:45-0400 Diastolic blood pressure 70 mm[Hg] Angela Parker MD Work Phone: [facility] 05-04-2025 11:45-0400 Heart rate 105 /min Angela Parker MD Work Phone: [facility] 05-04-2025 11:45-0400 SaO2% (BldA) [Mass fraction] 98 % Angela Parker MD Work Phone: [facility] 05-04-2025 11:45-0400 Systolic blood pressure 124 mm[Hg] Angela Parker MD Work Phone: [facility] 04-16-2025 12:30-0400 Body height 162.[address] Angela Parker MD Work Phone: 2(170)400-726149 [place] [address] 04-14-2025 14:16-0400 Body height 162.6 cm Angela Parker MD Work Phone: [facility] 04-14-2025 14:16-0400 Body mass index (BMI) [Ratio] 18.19 kg/m2 Angela Parker MD Work Phone: [facility] 04-14-2025 14:16-0400 Body temperature 98.29 [degF] Angela Parker MD Work Phone: [facility] 04-14-2025 14:16-0400 Body weight 48.08 kg Angela Parker MD Work Phone: [facility] 04-14-2025 14:16-0400 Diastolic blood pressure 85 mm[Hg] Angela Parker MD Work Phone: [facility] 04-14-2025 14:16-0400 Heart rate 61 /min Angela Parker MD Work Phone: [facility] 04-14-2025 14:16-0400 Respiratory rate 16 /min Angela Parker MD Work Phone: 6(505)480-497486 [place] [address] 04-14-2025 14:16-0400 SaO2% (BldA) [Mass fraction] 100 % Angela Parker MD Work Phone: 3(636)657-893517 [place] [address] 04-14-2025 14:16-0400 Systolic blood pressure 124 mm[Hg] Angela Parker MD Work Phone: 0(239)992-464917 [place] [address] 04-07-2025 08:16-0400 Body height 162.6 cm Angela Parker MD Work Phone: 2(061)399-706217 [place] [address] 04-07-2025 08:16-0400 Body mass index (BMI) [Ratio] 18.37 kg/m2 Angela Parker MD Work Phone: 4(614)658-322917 [place] [address] 04-07-2025 08:16-0400 Body weight 48.53 kg Angela Parker MD Work Phone: 0(715)304-382517 [place] [address] 04-07-2025 08:16-0400 Diastolic blood pressure 68 mm[Hg] Angela Parker MD Work Phone: 2(589)603-303517 [place] [address] 04-07-2025 08:16-0400 Heart rate 56 /min Angela Parker MD Work Phone: 7(646)728-218517 [place] [address] 04-07-2025 08:16-0400 Systolic blood pressure 102 mm[Hg] Angela Parker MD Work Phone: 0(042)039-165217 [place] [address] 03-23-2025 10:04-0400 Body height 162.6 cm Angela Parker MD Work Phone: 2(283)652-438017 [place] [address] 03-23-2025 10:04-0400 Body mass index (BMI) [Ratio] 18.45 kg/m2 Angela Parker MD Work Phone: 8(226)313-020617 [place] [address] 03-23-2025 10:04-0400 Body weight 48.8 kg Angela Parker MD Work Phone: 4(057)838-238117 [place] [address] 03-23-2025 10:04-0400 Diastolic blood pressure 60 mm[Hg] Angela Parker MD Work Phone: 8(890)899-847617 [place] [address] 03-23-2025 10:04-0400 Heart rate 62 /min Angela Parker MD Work Phone: [facility] 03-23-2025 10:04-0400 SaO2% (BldA) [Mass fraction] 100 % Angela Parker MD Work Phone: [facility] 03-23-2025 10:04-0400 Systolic blood pressure 116 mm[Hg] Angela Parker MD Work Phone: 3(162)277-494586 [place] [address] 03-17-2025 14:51-0400 Body height 163.2 cm Angela Parker MD Work Phone: 1(260)363-413986 [place] [address] 03-17-2025 14:51-0400 Body mass index (BMI) [Ratio] 18.33 kg/m2 Angela Parker MD Work Phone: 3(349)106-734086 [place] [address] 03-17-2025 14:51-0400 Body weight 48.81 kg Angela Parker MD Work Phone: 3(733)957-098686 [place] [address] 03-17-2025 14:51-0400 Diastolic blood pressure 78 mm[Hg] Angela Parker MD Work Phone: 8(158)160-429886 [place] [address] 03-17-2025 14:51-0400 Heart rate 97 /min Angela Parker MD Work Phone: [facility] 03-17-2025 14:51-0400 SaO2% (BldA) [Mass fraction] 98 % Angela Parker MD Work Phone: 9(207)805-764186 [place] [address] 03-17-2025 14:51-0400 Systolic blood pressure 120 mm[Hg] Angela Parker MD Work Phone: 1(668)993-671986 [place] [address] 12-11-2024 08:11-0500 Body height 163.2 cm Angela Pakrer MD Work Phone: 8(119)049-901386 [place] [address] 12-11-2024 08:11-0500 Body mass index (BMI) [Ratio] 18.39 kg/m2 Angela Parker MD Work Phone: [facility] 12-11-2024 08:11-0500 Body weight 48.99 kg Angela Parker MD Work Phone: [facility] 12-11-2024 08:11-0500 Diastolic blood pressure 80 mm[Hg] Angela Parker MD Work Phone: [facility] 12-11-2024 08:11-0500 Heart rate 79 /min Angela Parker MD Work Phone: [facility] 12-11-2024 08:11-0500 SaO2% (BldA) [Mass fraction] 99 % Angela Parker MD Work Phone: [facility] 12-11-2024 08:11-0500 Systolic blood pressure 102 mm[Hg] Angela Parker MD Work Phone: [facility] 09-08-2024 11:42-0400 Body height 163.2 cm Katelyn Wood [employer] Work Phone: [facility] 09-08-2024 11:42-0400 Body mass index (BMI) [Ratio] 20.27 kg/m2 Katelyn Wood [employer]ATOR Work Phone: [facility] 09-08-2024 11:42-0400 Body weight 53.98 kg Katelyn Wood ST[employer]PERATOR Work Phone: [facility] 09-08-2024 11:42-0400 Diastolic blood pressure 68 mm[Hg] Katelyn Wood ST[employer] M[employer] OPERATOR Work Phone: [facility] 09-08-2024 11:42-0400 Heart rate 71 /min Katelyn Wood [employer]PERATOR Work Phone: [facility] 09-08-2024 11:42-0400 SaO2% (BldA) [Mass fraction] 96 % Katelyn Wood ST[employer]PERATOR Work Phone: [facility] 09-08-2024 11:42-0400 Systolic blood pressure 112 mm[Hg] Katelyn Wood STOCK M[employer] OPERATOR Work Phone: [facility] 05-12-2024 08:57-0400 Body height 163.2 cm Angela Parker MD Work Phone: [facility] 05-12-2024 08:57-0400 Body mass index (BMI) [Ratio] 16.79 kg/m2 Angela Parker MD Work Phone: [facility] 05-12-2024 08:57-0400 Body weight 44.73 kg Angela Parker MD Work Phone: [facility] 05-12-2024 08:57-0400 Diastolic blood pressure 78 mm[Hg] Angela Parker MD Work Phone: 2(290)003-459986 [place] [address] 05-12-2024 08:57-0400 Heart rate 76 /min Angela Parker MD Work Phone: 9(500)244-058386 [place] [address] 05-12-2024 08:57-0400 SaO2% (BldA) [Mass fraction] 100 % Angela Parker MD Work Phone: 5(830)082-862486 [place] [address] 05-12-2024 08:57-0400 Systolic blood pressure 120 mm[Hg] Angela Parker MD Work Phone: 8(625)055-777286 [place] [address] 02-07-2024 09:16-0400 Body height 163.2 cm Angela Parker MD Work Phone: [facility] 02-07-2024 09:16-0400 Body mass index (BMI) [Ratio] 15.52 kg/m2 Angela Parker MD Work Phone: 4(553)611-249486 [place] [address] 02-07-2024 09:16-0400 Body weight 41.32 kg Angela Parker MD Work Phone: 3(568)345-954386 [place] [address] 02-07-2024 09:16-0400 Diastolic blood pressure 62 mm[Hg] Angela Parker MD Work Phone: 4(856)403-804986 [place] [address] 02-07-2024 09:16-0400 Heart rate 84 /min Angela Parker MD Work Phone: [facility] 02-07-2024 09:16-0400 SaO2% (BldA) [Mass fraction] 100 % Angela Parker MD Work Phone: [facility] 02-07-2024 09:16-0400 Systolic blood pressure 104 mm[Hg] Angela Parker MD Work Phone: [facility] 06-26-2023 16:47-0400 Body height 162.5 cm Efewongbe Oleghe Other Phone: [facility] 06-26-2023 16:47-0400 Body temperature 99.14 [degF] Efewongbe Oleghe Other Phone: [facility] 06-26-2023 16:47-0400 Diastolic blood pressure 73 mm[Hg] Efewongbe Oleghe Other Phone: [facility] 06-26-2023 16:47-0400 Heart rate 62 /min Efewongbe Oleghe Other Phone: [facility] 06-26-2023 16:47-0400 Respiratory rate 16 /min Efewongbe Oleghe Other Phone: [facility] 06-26-2023 16:47-0400 SaO2% (BldA) [Mass fraction] 98 % Efewongbe Oleghe Other Phone: [facility] 06-26-2023 16:47-0400 Systolic blood pressure 112 mm[Hg] Efewongbe Oleghe Other Phone: [facility] Encounter Date Encounter Type Care Provider Facility Start: 06-04-2025 End: 06-04-2025 Office outpatient visit 15 minutes Anegla Parker MD Work Phone: [facility] Comment on above: Leukocytoclastic vas culitis (Multi) (Primary Dx); IUD (intrauterine device) in place; Encounter for IUD removal Start: 06-04-2025 End: 06-04-[facility] Start: 05-22-[facility]25 ambulatory Angela Parker Facility :[facility] Start: 05-21-2025 End: 05-21-2025 ambulatory [facility] Start: 05-04-2025 End: 05-04-2025 Office outpatient visit 25 minutes Angela Parker MD Work Phone: [facility] Comment on above: Leukocytoclastic vas culitis (Multi) (Primary Dx); IUD (intrauterine device) in place Start: 05-04-2025 End: 05-04-2025 ambulatory [facility] Start: 04-16-2025 End: 04-16-[address] Angela Parker MD Work Phone: [facility] Work Phone: Start: 04-16-2025 End: 04-16-2025 Patient encounter procedure Joaquina PLUNKETT [facility] Work Phone: Start: 04-16-2025 End: 04-16-2025 ambulatory Joaquina PLUNKETT Facility:[facility] Start: 04-14-2025 End: 04-14-2025 Emergency department patient visit [facility] Comment on above: Petechiae (Primary D x); Pain in left lower leg; Purpura ([facility]) Start: 04-07-2025 End: 04-07-2025 Office outpatient visit 15 minutes Angela Parker MD Work Phone: [facility] Comment on above: Intrauterine device surveillance (Primary Dx); IUD (intrauterine device) in place Start: 04-07-2025 End: 04-07-2025 ambulatory [facility] Start: 03-23-2025 End: 03-23-2025 Patient encounter procedure Angela Parker MD Work Phone: [facility] Comment on above: Encounter for insert ion of 52 mg levonorgestrel-releasing intrauterine device (IUD) (Primary Dx); IUD (intrauterine device) in place Start: 03-23-2025 End: 03-23-2025 ambulatory [facility] Start: 03-17-2025 End: 03-17-2025 Office outpatient visit 15 minutes Angela Parker MD Work Phone: [facility] Comment on above: Itching of both hand s (Primary Dx); Irritant contact dermatitis due to cosmetics Start: 03-17-2025 End: 03-17-2025 ambulatory [facility] Start: 12-11-2024 End: 12-11-2024 Patient encounter status Angela Parker MD Work Phone: [facility] Work Phone: Start: 12-11-2024 End: 12-11-2024 Periodic preventive med est patient 18-39 yrs Angela Parker MD Work Phone: [facility] Comment on above: Encounter for gyneco logical examination without abnormal finding (Primary Dx); Screening for cervical cancer Start: 12-11-2024 End: 12-11-2024 ambulatory [facility] Start: 12-11-2024 End: 12-11-2024 Encounter for gynecological examination (general) (routine) without abnormal findings [facility] Start: 12-10-2024 End: 12-10-2024 ambulatory [facility] Start: 09-08-2024 End: 09-08-2024 Office outpatient visit 15 minutes Katelyn Angela Flowood [employer] Work Phone: [facility] Comment on above: Dysuria (Primary Dx) ; Urine frequency Start: 09-08-2024 End: 09-08-2024 ambulatory [facility] Start: 05-12-2024 End: 05-12-2024 Patient encounter procedure Angela Parker MD Work Phone: [facility] Work Phone: Start: 05-12-2024 End: 05-12-2024 Periodic preventive med est patient 18-39 yrs Angela Parker MD Work Phone: [facility] Comment on above: Annual physical exam (Primary Dx); Underweight; Vaping nicotine dependence, non-tobacco product; Screening for HIV (human immunodeficiency virus); Need for hepatitis C screening test; Screening cholesterol level; Screening examination for STI; Screening for diabetes mellitus; Need for prophylactic vaccination against diphtheria and tetanus Start: 02-07-2024 End: 02-07-2024 Office outpatient visit 25 minutes Angela Parker MD Work Phone: [facility] Comment on above: Vaping nicotine depe ndence, non-tobacco product (Primary Dx); Underweight Start: 06-26-2023 End: 06-26-2023 Emergency department patient visit Kodi Ramsey [facility] Start: 03-26-2023 End: 03-27-2023 ambulatory NEHEMIAS Early [facility] Facility:[id number] Start: 11-10-2021 End: 11-10-2021 [facility] Start: 07-27-[address] Angela Parker MD Work Phone: [facility] Start: 10-27-2018 End: 10-27-2018 Emergency department patient visit [facility] Facility:[facility] Procedures Date Procedure Procedure Detail Performing Clinician Start: 06-04-2025 Removal intrauterine device iud Angela Parker MD Work Phone: Start: 05-04-2025 Urnls dip stick/tabl et rgnt auto w/o microscopy Angela Parker MD Work Phone: Start: 04-16-[address] Angela Parker MD Work Phone: Start: 04-16-2025 Urnls dip stick/tabl et reagent auto microscopy Dr. Angela Parker MD Work Phone: Start: 04-14-2025 Dup-scan xtr veins unilateral/limited study Tari Blue [employer] Work Phone: Start: 04-14-2025 C-reactive protein Corin Blue [employer] Work Phone: Start: 04-14-2025 Prothrombin time Tyrell Blue [employer] Work Phone: Start: 03-23-2025 Urine test visual color cmprsn meths Angela Parker MD Work Phone: Start: 03-23-2025 Insertion intrauteri ne device iud Angela Parker MD Work Phone: Start: 12-11-2024 Microscopic observat ion [Identifier] in Cervix by Cyto stain Angela Parker MD Work Phone: Start: 12-10-2024 Lipid 1996 panel - S priscilla or Plasma Angela Parker MD Work Phone: Start: 09-08-2024 Urnls dip stick/tabl et rgnt auto w/o microscopy Katelyn Magallanes [employer] Work Phone: Start: 03-26-2023 Microscopic observat ion [Identifier] in Cervix by Cyto stain Katelyn Magallanes [employer] OPERATOR Work Phone: Start: 11-26-2021 Microscopic observat ion [Identifier] in Cervix by Cyto stain Angela Parker MD Work Phone: History of laser ass isted in situ keratomileusis Hx of LASIK Dr. Angela Parker MD Work Phone: Plan of Treatment Date Care Activity Detail Author Start: 2050 Zoster Vaccines (1 of 2) Zoster Vaccines (1 of 2) [facility] Start: 05-12-2034 DTaP/Tdap/Td Vaccines (7 - Td or Tdap) DTaP/Tdap/Td Vaccines (7 - Td or Tdap) [facility] Start: 12-10-2029 Lipid panel Lipid Panel [facility] Start: 12-11-2027 Screening for malignant neoplasm of cervix [facility] Start: 03-26-2026 Screening for malignant neoplasm of cervix [facility] Start: 12-12-2025 Yearly Adult Physical Yearly Adult Physical [facility] Start: 12-10-2025 End: 12-10-2025 Patient encounter procedure 12/10/2025 9:00 AM EST Office Visit [facility] [address] [place] [address] Angela Parker MD [address] [address] [facility] Start: 07-27-2025 Influenza vaccination [facility] Start: 07-07-2025 End: 07-07-2025 Patient encounter procedure 07/07/2025 1:20 PM EDT Office Visit [facility] [address] [facility] [address] [place] [address] Isaac Nguyen MD [address] [address] [facility] Start: 06-23-2025 End: 06-23-2025 Patient encounter procedure 06/23/2025 3:00 PM EDT Procedure Visit [place] [address] [address] Angela Parker MD [address] [address] [facility] Start: 05-13-2025 Yearly Adult Physical Yearly Adult Physical [facility] Start: 04-16-2025 [facility] Start: 03-23-2025 End: 03-23-2025 Patient encounter procedure 03/23/2025 10:20 AM EDT Office Visit [place] [address] [address] Angela Parker MD [address] [address] [facility] Start: 12-08-2024 End: 12-08-2024 Patient encounter procedure [facility] Start: 11-26-2024 Screening for malignant neoplasm of cervix [facility] Start: 07-27-2024 COVID-19 Vaccine () COVID-19 Vaccine () [facility] Start: 07-27-2024 COVID-19 Vaccine ( season) COVID-19 Vaccine () [facility] Start: 07-27-2024 Influenza vaccination [facility] Start: 05-12-2024 End: 05-12-2025 Chlamydia trachomatis and Neisseria gonorrhoeae DNA [Identifier] in Unspecified specimen by SCARLETT with probe detection C. trachomatis / N. gonorrhoeae, DNA probe Lab Routine Screening examination for STI Expected: 05/12/2024 (Approximate), Expires: 05/12/2025 [facility] Work Phone: Comment on above: Expected: 05/12/2024 (Approximate), Expi res: 05/12/2025 Start: 05-12-2024 End: 05-12-2025 Comprehensive metabolic 2000 panel - Serum or Plasma Comprehensive metabolic panel Lab Routine Underweight Screening for diabetes mellitus Expected: 05/12/2024 (Approximate), Expires: 05/12/2025 [facility] Work Phone: Comment on above: Expected: 05/12/2024 (Approximate), Expi res: 05/12/2025 Start: 05-12-2024 End: 05-12-2025 Hepatitis C virus Ab [Presence] in Serum Hepatitis C antibody Lab Routine Need for hepatitis C screening test Expected: 05/12/2024 (Approximate), Expires: 05/12/2025 [facility] Work Phone: Comment on above: Expected: 05/12/2024 (Approximate), Expi res: 05/12/2025 Start: 05-12-2024 End: 05-12-2025 HIV 1+2 Ab+HIV1 p24 Ag [Presence] in Serum or Plasma by Immunoassay HIV 1/2 Antigen/Antibody Screen with Reflex to Confirmation Lab Routine Screening for HIV (human immunodeficiency virus) Expected: 05/12/2024 (Approximate), Expires: 05/12/2025 [facility] Work Phone: Comment on above: Expected: 05/12/2024 (Approximate), Expi res: 05/12/2025 Start: 05-12-2024 End: 05-12-2025 Lipid 1996 panel - Serum or Plasma Lipid panel Lab Routine Screening cholesterol level Expected: 05/12/2024 (Approximate), Expires: 05/12/2025 [facility] Service Area Work Phone: Comment on above: Expected: 05/12/2024 (Approximate), Expi res: 05/12/2025 Start: 05-12-2024 End: 05-12-2025 Tsh With Reflex To Free T4 If Abnormal Tsh With Reflex To Free T4 If Abnormal Lab Routine Underweight Expected: 05/12/2024 (Approximate), Expires: 05/12/2025 [facility] Work Phone: Comment on above: Expected: 05/12/2024 (Approximate), Expi res: 05/12/2025 Start: 05-12-2024 End: 05-12-2024 Patient encounter procedure 05/12/2024 9:00 AM EDT Office Visit [facility] [address] [place] [address] Angela Parker MD [address] [place] [address] [facility] Start: 08-19-2023 DTaP/Tdap/Td Vaccines (6 - Td or Tdap) DTaP/Tdap/Td Vaccines (6 - Td or Tdap) [facility] Start: 07-27-2023 COVID-19 Vaccine ( season) COVID-19 Vaccine ( season) [facility] Start: 07-27-2023 Influenza vaccination Influenza Vaccine (#1) [facility] Start: 2021 Screening for malignant neoplasm of cervix [facility] Start: 05-05-2021 COVID-19 Vaccine (3 - Moderna risk series) COVID-19 Vaccine (3 - Moderna risk series) [facility] Start: 2018 Hepatitis C screening Hepatitis C Screening [facility] Start: 10-02-2013 Varicella vaccination Varicella Vaccines (1 of 2 - 13+ 2-dose series) [facility] Start: 08-02-2005 Varicella vaccination Varicella Vaccines (1 of 2 - 2-dose childhood series) [facility] Start: 2000 HIV screening HIV Screening [facility] Start: 2000 Lipid panel Lipid Panel [facility] Start: 2000 Screening for Chlamydia trachomatis Chlamydia and Gonorrhea Screening [facility] Start: 2000 Yearly Adult Physical Yearly Adult Physical [facility] Cytology Cervical or vaginal smear or scraping study THINPREP PAP TEST Pathology and Cytology Routine Screening for cervical cancer 12/11/2024 9:07 AM EST [facility] Service Area Work Phone: Lower extremity veno us duplex left Lower extremity venous duplex left Vascular Ultrasound STAT Pain in left lower leg 04/14/2025 2:59 PM EDT [facility] Work Phone: End: 04-14-2025 LYME (B. BURGDORFERI) AB MODIFIED 2-TITER TESTING, WITH REFLEX TO IGM AND IGG BY [facility] Service Area Work Phone: Comment on above: Once (Lab) for 1 Occurrences starting until 04/14/2025 Nuclear Ab [Titer] i n Serum by Immunofluorescence [facility] Immunizations Immunization Date Immunization Notes Care Provider Fa james 05-12-2024 tetanus toxoid, redu bart diphtheria toxoid, and acellular pertussis vaccine, adsorbed Angela Parker MD Work Phone: [facility] Work Phone: 07-16-2018 hepatitis A vaccine, pediatric/adolescent dosage, 2 dose schedule Angela Parker MD Work Phone: [facility] Work Phone: 07-16-2018 human papilloma viru s vaccine, quadrivalent Angela Parker MD Work Phone: [facility] Work Phone: 07-16-2018 meningococcal B vacc ine, recombinant, OMV, adjuvanted Angela Parker MD Work Phone: [facility] Work Phone: 07-16-2018 meningococcal polysaccharide (groups A, C, Y and W-135) diphtheria toxoid conjugate vaccine (MCV4P) Angela Parker MD Work Phone: [facility] Work Phone: 08-19-2013 hepatitis A vaccine, pediatric/adolescent dosage, 2 dose schedule Angela Parker MD Work Phone: [facility] Work Phone: 08-19-2013 HPV, unspecified formulation Angela Parker MD Work Phone: [facility] Work Phone: 08-19-2013 meningococcal polysaccharide (groups A, C, Y and W-135) diphtheria toxoid conjugate vaccine (MCV4P) Angela Parker MD Work Phone: [facility] Work Phone: 08-19-2013 tetanus toxoid, redu bart diphtheria toxoid, and acellular pertussis vaccine, adsorbed Angela Parker MD Work Phone: [facility] Work Phone: 08-15-2006 diphtheria, tetanus toxoids and acellular pertussis vaccine, unspecified formulation Angela Parker MD Work Phone: [facility] Work Phone: 07-05-2005 diphtheria, tetanus toxoids and acellular pertussis vaccine, unspecified formulation Angela Parker MD Work Phone: [facility] Work Phone: 07-05-2005 measles, mumps and rubella virus vaccine Angela Parker MD Work Phone: [facility] Work Phone: 07-05-2005 poliovirus vaccine, inactivated Angela Parker MD Work Phone: [facility] Work Phone: 05-03-2005 DTaP-hepatitis B and poliovirus vaccine Angela Parker MD Work Phone: [facility] 05-03-2005 haemophilus influenz ae type b vaccine, conjugate unspecified formulation Angela Parker MD Work Phone: [facility] Work Phone: 05-03-2005 measles, mumps and rubella virus vaccine Angela Parker MD Work Phone: [facility] Work Phone: 05-03-2005 pneumococcal conjuga te vaccine, 7 valent Angela Parker MD Work Phone: [facility] Work Phone: 06-12-2001 diphtheria, tetanus toxoids and acellular pertussis vaccine, unspecified formulation Angela Parker MD Work Phone: [facility] Work Phone: 06-12-2001 haemophilus influenz ae type b conjugate and Hepatitis B vaccine Angela Parker MD Work Phone: [facility] Work Phone: 06-12-2001 pneumococcal conjuga te vaccine, 7 valent Angela Parker MD Work Phone: [facility] Work Phone: 06-12-2001 poliovirus vaccine, inactivated Angela Parker MD Work Phone: [facility] Work Phone: 2000 hepatitis B vaccine, pediatric or pediatric/adolescent dosage Angela Parker MD Work Phone: [facility] Work Phone: Payers Date Payer Category Payer Self-pay 2023 [facility] (Private) [facility] H[facility] [id number] 2021 Unknown [id number] [address] [facility] [id number] 2008 Unknown 2000 Unknown [id number]. 717 2000 Unknown [id number] [id number]. 902 2000 Unknown [id number] [id number]. 159 2000 Unknown [id number] [id number]. 159 2000 Unknown [id number] [id number]. 1069 2000 Unknown [id number] [id number]. 1245 2000 Unknown [id number] [id number]. 1243 2000 Unknown [id number] [id number]. 1244 2000 Unknown [id number] [id number]. 1244 2000 Unknown [id number] [id number]. 1244 2000 Unknown [id number] [id number]. 1244 2000 Unknown [id number] [id number]. 1244 2000 Unknown [id number] [id number]. 1244 2000 Unknown [id number] [id number]. 1244 Unknown [id number] [id number]. 462 Unknown [id number] [id number]. 462 Social History Date Type Detail Facility [facility] Start: 01-09-2024 End: 06-04-2025 Tobacco smoking status NHIS Never smoked tobacco [facility] Work Phone: Start: 01-09-2024 Tobacco use and exposure Smokeless tobacco non-user [facility] Work Phone: Start: 02-07-2024 End: 06-04-2025 Alcohol intake Current drinker of alcohol (finding) [facility] Work Phone: Start: 01-09-2024 End: 06-04-2025 History of Social function [facility] Work Phone: Start: 01-09-2024 End: 06-04-2025 Tobacco use panel [facility] Work Phone: Start: 01-09-2024 Tobacco Comment [facility] Work Phone: Start: 01-09-2024 Alcohol Comment Average maybe 3-4 drinks a month [facility] Work Phone: Start: 2000 Sex Assigned At Not on file [facility] Work Phone: Start: 01-28-2024 End: 05-04-2025 Exposure to SARS-CoV-2 (event) Not sure [facility] Start: 03-26-2019 Tobacco Use Tobacco Use [facility] Start: 2000 Sex Assigned At Female [facility] Start: 06-04-2025 Tobacco use and exposure User of smokeless tobacco [facility] Work Phone: Start: 06-04-2025 Tobacco Comment [facility] Work Phone: NEGATED: Highlighted rowStart: NINF History of tobacco use Passive smoker [facility] Work Phone: Functional Status Date Assessment Result Facility 06-04-2025 Patient Health Quest ionnaire 2 item (PHQ-2) [Reported] [facility] Work Phone: 04-14-2025 [facility] s everity rating scale screener - recent [C-SSRS] [facility] Work Phone: 03-23-2025 Patient Health Quest ionnaire 2 item (PHQ-2) [Reported] [facility] Work Phone: 03-17-2025 Patient Health Quest ionnaire 2 item (PHQ-2) [Reported] [facility] Work Phone: Clinical Notes 02-07-2024 to 06-04-2025 Angela Parker MD - 06/04/2025 11:40 AM Davide Parker MD - 05/04/2025 11:40 AM EDTDischarge InstructionsAttachFabiola Blue [facility] - 04/14/2025 2:11 PM EDTPatient Instructions Note Date & Type Note Facility 06-04-2025 History of Present illness Narrative Associated Order(s): IUD Removal Pre-Procedure Diagnose(s): Leukocytoclastic vasculitis (Multi); IUD (intrauterine device) in place Post-Procedure Diagnose(s): Leukocytoclastic vasculitis (Multi); IUD (intrauterine device) in place Images from the original note were not included. Subjective: Anand Debby Manriquez is a 24 y.o. female who presents to clinic today for IUD Removed (IUD Removed) She was able to see rheumatology and is currently on colchicine. She is not having systemic systems. She is on higher prednisone at this time. She had a chest xray and more blood work. Now skin is ulcerating and wounds are getting dressed twice daily. Putting drops from dermatology in there. Her IUD lined up with getting the vasculitis. Review of Systems Assessment/Plan: Anand Manriquez is a 24 y.o. female who presents to clinic today to address the following issues: 1. Leukocytoclastic vasculitis (Multi) IUD Removal 2. IUD (intrauterine device) in place IUD Removal 3. Encounter for IUD removal Based upon on decision of rheumatology and dermatology patient opts to have IUD removed despite the fact that it was improving her menstrual cycles. It there is no other known cause for her leukocytoclastic vasculitis and we are trying to remove any potential triggers. Problem List Items Addressed This Visit IUD (intrauterine device) in place Overview Liletta inserted 03/23/25 8 year removal date 03/23/2033 Relevant Orders IUD Removal Other Visit Diagnoses Leukocytoclastic vasculitis (Multi) - Primary Relevant Orders IUD Removal Encounter for IUD removal There are no Patient Instructions on file for this visit. Follow up: as needed Return precautions discussed. An After Visit Summary was given to the patient. All questions were answered and patient in agreement with plan. Objective: BP 98/78 Pulse 71 Ht 1.626 m (5' 4) Wt 47.2 kg (104 lb) SpO2 100% BMI 17.85 kg/m Physical Exam Vitals and nursing note reviewed. Exam conducted with a farm management agent present (Cynthia). Constitutional: General: She is not in acute distress. Appearance: Normal appearance. HENT: Head: Normocephalic and atraumatic. Mouth/Throat: Mouth: Mucous membranes are moist. Eyes: General: No scleral icterus. Right eye: No discharge. Left eye: No discharge. Extraocular Movements: Extraocular movements intact. Conjunctiva/sclera: Conjunctivae normal. Pulmonary: Effort: No respiratory distress. Genitourinary: Pubic Area: No rash or pubic lice. Alexis stage (genital): 5. Vagina: Normal. Cervix: Normal. Comments: IUD strings visualized and removed Skin: General: Skin is warm and dry. Neurological: General: No focal deficit present. Mental Status: She is alert and oriented to person, place, and time. Psychiatric: Attention and Perception: Attention normal. Mood and Affect: Mood normal. Speech: Speech normal. Behavior: Behavior normal. Cognition and Memory: Cognition and memory normal. Judgment: Judgment normal. Patient ID: Anand Manriquez is a 24 y.o. female. IUD Removal Performed by: Angela Parker MD Authorized by: Angela Parker MD Procedure: IUD removal Consent obtained by patient, parent, or legal power of commercial real estate attorney - including discussion of procedure risks and benefits, patient questions answered, and patient education provided: yes Reason for removal: patient request Strings visualized: yes Tenaculum applied to cervix: no Cervix manually dilated: no IUD grasped by forceps: yes Performed with ultrasound guidance: no IUD removed: yes Date/Time of Removal: 06/04/2025 11:55 AM Removed without complications: yes IUD intact: yes I spent 15 minutes in total time for this visit including all related clinical activities before, during, and after the visit excluding other billable activities/procedure time. Angela Parker MD documented in this encounter [facility] Work Phone: 05-04-2025 History of Present illness Narrative Images from the original note were not included. Subjective: Anand Manriquez is a 24 y.o. female who presents to clinic today for Follow-up (Follow up from Dermatology; 04/30/25) Was seen on 03/17 due to hand rash and sore throat April 04, out in [place] and had tick on pants, not on her sking April 08, had minute spots that itched on feet and ankles April 12 rash spreading and more spots April 13 looked like hives and felt like it spread a lot and went up back of calves April 14 seen at urgent care and ED and was told it was petechial rash April 16 saw dermatology who determined it was leukocytoclastic vasculitis and was started on amoxicillin, prednisone for 3 weeks. Treated with triamcinolone cream, used for 2 weeks and currently on week off Wearing compression stockings due to swelling. She did have protein and blood in her urine. Aso antibody positive. Review of Systems Constitutional: Positive for fatigue. Negative for fever. HENT: Positive for rhinorrhea. Negative for congestion and sore throat. Eyes: Negative for pain. Respiratory: Negative for cough and shortness of breath. Gastrointestinal: Negative for diarrhea and vomiting. Skin: Positive for rash. Assessment/Plan: Anand Manriquez is a 24 y.o. female presents to clinic today to address the following issues: 1. Leukocytoclastic vasculitis (Multi) Referral to Rheumatology POCT UA Automated manually resulted CANCELED: Urinalysis with Reflex Microscopic CANCELED: Urinalysis with Reflex Microscopic CANCELED: Urinalysis with Reflex Microscopic 2. IUD (intrauterine device) in place I reviewed her labs from dermatology office including normal LIANA and UA showing blood and protein. Obtained repeat UA today which shows persistent blood but improved protein. At this time I do not believe patient needs referral to nephrology but will continue to follow. I additionally referred patient to rheumatology for further evaluation and management and did attempt to call the research worker kitchen but unfortunately did not hear back thus far. Ultimately, it seems that patient's significant vasculitis is likely related to strep infection but discussed with her if no other cause can be found and it does not appear to be that way to her specialist we could consider removing IUD. Discussed that there is no known documented cases that I was able to find but the timeline does line up. Problem List Items Addressed This Visit IUD (intrauterine device) in place Overview Liletta inserted 03/23/25 8 year removal date 03/23/2033 Other Visit Diagnoses Leukocytoclastic vasculitis (Multi) - Primary Relevant Orders Referral to Rheumatology POCT UA Automated manually resulted (Completed) There are no Patient Instructions on file for this visit. Follow up: As needed Return precautions discussed. An After Visit Summary was given to the patient. All questions were answered and patient in agreement with plan. Objective: BP 124/70 (BP Location: Left arm, Patient Position: Sitting, BP Cuff Size: Adult) Pulse 105 Ht 1.626 m (5' 4) Wt 47.6 kg (105 lb) LMP 04/09/2025 (Approximate) SpO2 98% BMI 18.02 kg/m Physical Exam Vitals and nursing note reviewed. Constitutional: General: She is not in acute distress. Appearance: Normal appearance. HENT: Head: Normocephalic and atraumatic. Mouth/Throat: Mouth: Mucous membranes are moist. Eyes: General: No scleral icterus. Right eye: No discharge. Left eye: No discharge. Extraocular Movements: Extraocular movements intact. Conjunctiva/sclera: Conjunctivae normal. Pulmonary: Effort: No respiratory distress. Neurological: General: No focal deficit present. Mental Status: She is alert and oriented to person, place, and time. Psychiatric: Attention and Perception: Attention normal. Mood and Affect: Mood normal. Speech: Speech normal. Behavior: Behavior normal. Cognition and Memory: Cognition and memory normal. Judgment: Judgment normal. I spent 22 minutes in total time for this visit including all related clinical activities before, during, and after the visit excluding other billable activities/procedure time. Angela Parker MD Answers submitted by the patient for this visit: Rash Questionnaire (Submitted on 04/30/2025) Chief Complaint: Rash Chronicity: new Onset: 1 to 4 weeks ago Progression since onset: waxing and waning Affected locations: left leg, left ankle, left foot, left toes, right upper leg, right leg, right ankle, right foot, right toes Characteristics: blistering, burning, pain, redness, swelling, itchiness Exposed to: nothing anorexia: No facial edema: No joint pain: Yes nail changes: No documented in this encounter [facility] Work Phone: 04-14-2025 Hospital Discharge instructions YUN Savage - 04/14/2025 4:31 PM EDT [facility] Address: [address], [place] [address] [facility] [address], [address] [place] [address] P: [phone] The following attachments cannot be sent through Care Everywhere._Petechiae, Simple, [facility] (Dominican)documented in this encounter [facility] Work Phone: 04-14-2025 Physician Emergency department Note Chief Complaint Patient presents with Rash Bilateral leg rash since Sunday. Sent here from urgent care. Pt reports some spots are painful and itchy at times. Denies n/v/d or fevers. Patient History Medical History[1] Surgical History[2] Family History[3] Social History Social History Narrative Not on file RX Allergies[4] PMH: Reviewed PSH: Reviewed Social History: Reviewed. Allergies reviewed. HPI: Anand Manriquez is a 24 y.o. female who presents to the ED today unaccompanied with complaints of bilateral leg rash. She admits to being out in the [place] about a week ago and noting that she had a tick crawling on her left pant leg. States it was not embedded, just crawling on her clothing. She then developed a rash on both of her legs a week ago. Has progressively worsened and spread, into the arches of both of her feet and up to her buttocks. Occasionally itchy and painful. Tried taking a cetirizine this morning for the symptoms, no relief. No associated nausea, vomiting, diarrhea, fever, chills. No history of similar rash. Denies any new medications, soaps, lotions, laundry detergents. Has not been using anything on the rash. Sent from urgent care. Also reports left calf pain since last night, unsure if related to rash. Denies feeling ill. PHYSICAL EXAM: GENERAL: Vitals noted, no distress. Alert and oriented x 3. Non-toxic. HEAD: Normocephalic, atraumatic. Pupils equally round and reactive to light. EOMI. NECK: Supple. No midline or paraspinal tenderness through full range of motion. CARDIAC: Regular rate, rhythm. No murmurs or rubs. RESPIRATORY: Lungs clear and equal bilaterally. No respiratory distress. MUSCULOSKELETAL & SKIN: Warm, dry, and intact. No peripheral edema. Petechial and purpura rash noted on both lower extremities, not blanchable, slightly raised, from the edge of the arch of the foot extending upwards to the buttocks. Calf compartments soft, left tender to touch. NEURO: No focal neurologic deficits, acting appropriately. Labs Reviewed PROTIME-INR - Normal Result Value Protime 11.9 INR 1.1 APTT - Normal aPTT 28 Narrative: The APTT is no longer used for monitoring Unfractionated Heparin Therapy. For monitoring Heparin Therapy, use the Heparin Assay. SEDIMENTATION RATE, AUTOMATED - Normal Sedimentation Rate 7 C-REACTIVE PROTEIN - Normal C-Reactive Protein <0.10 CBC WITH AUTO DIFFERENTIAL WBC 8.3 nRBC 0.0 RBC 4.65 Hemoglobin 13.8 Hematocrit 41.8 MCV 90 MCH 29.7 MCHC 33.0 RDW 11.9 Platelets 220 Neutrophils % 68.0 Immature Granulocytes %, Automated 0.2 Lymphocytes % 22.7 Monocytes % 5.8 Eosinophils % 2.3 Basophils % 1.0 Neutrophils Absolute 5.65 Immature Granulocytes Absolute, Automated 0.02 Lymphocytes Absolute 1.89 Monocytes Absolute 0.48 Eosinophils Absolute 0.19 Basophils Absolute 0.08 LYME (B. BURGDORFERI) AB MODIFIED 2-TITER TESTING, WITH REFLEX TO IGM AND IGG BY [facility] Lower extremity venous duplex left PRELIMINARY CONCLUSIONS: Right Lower Venous: The right common femoral vein demonstrates normal spontaneous and respirophasic flow. Left Lower Venous: No evidence of acute deep vein thrombus visualized in the left lower extremity. Medical Decision Making ED COURSE: This patient was seen and examined by myself independently. Patient presents with a petechial rash on her legs, sent from urgent care. She is well appearing. Will obtain blood work and ultrasound of the left leg. Coags, blood counts, inflammatory markers are all negative as noted above. Ultrasound is negative for DVT. Lyme titer is pending. Patient does not look ill, comfortable with outpatient follow-up with dermatology to determine the cause of her petechial and purpura rash. Discharged home in stable condition with dermatology followup. DIAGNOSTIC IMPRESSION: #1 petechial rash [1] Past Medical History: Diagnosis Date Anxiety 02/13 [2] Past Surgical History: Procedure Laterality Date EYE SURGERY 05/16 [3] Family History Problem Relation Name Age of Onset Hyperthyroidism Mother Hypertension Mother Hyperlipidemia Father Stroke Maternal Grandfather Marshall Bradshaw No Known Problems Paternal Grandmother No Known Problems Paternal Grandfather [4] Allergies Allergen Reactions Azithromycin Other Tari Blue, STOCK MOVER-HOT MILL OPERATOR 05/20/25 [id number] [facility] Work Phone: 04-14-2025 Emergency department Note Chief Complaint Patient presents with Rash Bilateral leg rash since Sunday. Sent here from urgent care. Pt reports some spots are painful and itchy at times. Denies n/v/d or fevers. Patient History Medical History[1] Surgical History[2] Family History[3] Social History Social History Narrative Not on file RX Allergies[4] PMH: Reviewed PSH: Reviewed Social History: Reviewed. Allergies reviewed. HPI: Anand Manriquez is a 24 y.o. female who presents to the ED today unaccompanied with complaints of bilateral leg rash. She admits to being out in the [place] about a week ago and noting that she had a tick crawling on her left pant leg. States it was not embedded, just crawling on her clothing. She then developed a rash on both of her legs a week ago. Has progressively worsened and spread, into the arches of both of her feet and up to her buttocks. Occasionally itchy and painful. Tried taking a cetirizine this morning for the symptoms, no relief. No associated nausea, vomiting, diarrhea, fever, chills. No history of similar rash. Denies any new medications, soaps, lotions, laundry detergents. Has not been using anything on the rash. Sent from urgent care. Also reports left calf pain since last night, unsure if related to rash. Denies feeling ill. PHYSICAL EXAM: GENERAL: Vitals noted, no distress. Alert and oriented x 3. Non-toxic. HEAD: Normocephalic, atraumatic. Pupils equally round and reactive to light. EOMI. NECK: Supple. No midline or paraspinal tenderness through full range of motion. CARDIAC: Regular rate, rhythm. No murmurs or rubs. RESPIRATORY: Lungs clear and equal bilaterally. No respiratory distress. MUSCULOSKELETAL & SKIN: Warm, dry, and intact. No peripheral edema. Petechial and purpura rash noted on both lower extremities, not blanchable, slightly raised, from the edge of the arch of the foot extending upwards to the buttocks. Calf compartments soft, left tender to touch. NEURO: No focal neurologic deficits, acting appropriately. Labs Reviewed PROTIME-INR - Normal Result Value Protime 11.9 INR 1.1 APTT - Normal aPTT 28 Narrative: The APTT is no longer used for monitoring Unfractionated Heparin Therapy. For monitoring Heparin Therapy, use the Heparin Assay. SEDIMENTATION RATE, AUTOMATED - Normal Sedimentation Rate 7 C-REACTIVE PROTEIN - Normal C-Reactive Protein <0.10 CBC WITH AUTO DIFFERENTIAL WBC 8.3 nRBC 0.0 RBC 4.65 Hemoglobin 13.8 Hematocrit 41.8 MCV 90 MCH 29.7 MCHC 33.0 RDW 11.9 Platelets 220 Neutrophils % 68.0 Immature Granulocytes %, Automated 0.2 Lymphocytes % 22.7 Monocytes % 5.8 Eosinophils % 2.3 Basophils % 1.0 Neutrophils Absolute 5.65 Immature Granulocytes Absolute, Automated 0.02 Lymphocytes Absolute 1.89 Monocytes Absolute 0.48 Eosinophils Absolute 0.19 Basophils Absolute 0.08 LYME (B. BURGDORFERI) AB MODIFIED 2-TITER TESTING, WITH REFLEX TO IGM AND IGG BY [facility] Lower extremity venous duplex left PRELIMINARY CONCLUSIONS: Right Lower Venous: The right common femoral vein demonstrates normal spontaneous and respirophasic flow. Left Lower Venous: No evidence of acute deep vein thrombus visualized in the left lower extremity. Medical Decision Making ED COURSE: This patient was seen and examined by myself independently. Patient presents with a petechial rash on her legs, sent from urgent care. She is well appearing. Will obtain blood work and ultrasound of the left leg. Coags, blood counts, inflammatory markers are all negative as noted above. Ultrasound is negative for DVT. Lyme titer is pending. Patient does not look ill, comfortable with outpatient follow-up with dermatology to determine the cause of her petechial and purpura rash. Discharged home in stable condition with dermatology followup. DIAGNOSTIC IMPRESSION: #1 petechial rash [1] Past Medical History: Diagnosis Date Anxiety 02/13 [2] Past Surgical History: Procedure Laterality Date EYE SURGERY 05/16 [3] Family History Problem Relation Name Age of Onset Hyperthyroidism Mother Hypertension Mother Hyperlipidemia Father Stroke Maternal Grandfather Marshall Bradshaw No Known Problems Paternal Grandmother No Known Problems Paternal Grandfather [4] Allergies Allergen Reactions Azithromycin Other Tari Blue, YVONNE-HOT MILL OPERATOR 04/14/25 [id number] documented in this encounter [facility] Work Phone: 04-07-2025 History of Present illness Narrative Images from the original note were not included. Subjective: Anand Manriquez is a 24 y.o. female who presents to clinic today for string check for IUD Went to the bathroom and the string of IUD came out of vaginal introitus. Has already noticed decreased pelvic pain cramping and bleeding with this cycle compared to previous. Overall satisfied with her IUD at this point. Review of Systems Assessment/Plan: Anand Manriquez is a 24 y.o. female who presents to clinic today to address the following issues: 1. Intrauterine device surveillance 2. IUD (intrauterine device) in place IUD strings in place. Strings cut down to 3cm wihtout difficulty and patient tolerated examination easily. Problem List Items Addressed This Visit IUD (intrauterine device) in place Overview Liletta inserted 03/23/25 8 year removal date 03/23/2033 Other Visit Diagnoses Intrauterine device surveillance - Primary There are no Patient Instructions on file for this visit. Follow up: as needed Return precautions discussed. An After Visit Summary was given to the patient. All questions were answered and patient in agreement with plan. Objective: BP 102/68 Pulse 56 Ht 1.626 m (5' 4) Wt 48.5 kg (107 lb) BMI 18.37 kg/m Physical Exam Vitals and nursing note reviewed. Exam conducted with a farm management agent present (Caite Holloway). Constitutional: General: She is not in acute distress. Appearance: Normal appearance. HENT: Head: Normocephalic and atraumatic. Mouth/Throat: Mouth: Mucous membranes are moist. Eyes: General: No scleral icterus. Right eye: No discharge. Left eye: No discharge. Extraocular Movements: Extraocular movements intact. Conjunctiva/sclera: Conjunctivae normal. Pulmonary: Effort: No respiratory distress. Genitourinary: Pubic Area: No rash or pubic lice. Alexis stage (genital): 5. Vagina: Normal. Cervix: Cervical bleeding present. Comments: Long IUD strings in place, strings cut down to 3cm without difficulty Skin: General: Skin is warm and dry. Neurological: General: No focal deficit present. Mental Status: She is alert and oriented to person, place, and time. Psychiatric: Attention and Perception: Attention normal. Mood and Affect: Mood normal. Speech: Speech normal. Behavior: Behavior normal. Cognition and Memory: Cognition and memory normal. Judgment: Judgment normal. I spent 10 minutes in total time for this visit including all related clinical activities before, during, and after the visit excluding other billable activities/procedure time. Angela Parker MD documented in this encounter [facility] Work Phone: 03-23-2025 History of Present illness Narrative Associated Order(s): IUD Insertion Pre-Procedure Diagnose(s): Encounter for insertion of 52 mg levonorgestrel-releasing intrauterine device (IUD) Post-Procedure Diagnose(s): Encounter for insertion of 52 mg levonorgestrel-releasing intrauterine device (IUD) Patient ID: Anand Manriquez is a 24 y.o. female. IUD Insertion Performed by: Angela Parker MD Authorized by: Angela Parker MD Procedure: IUD insertion Consent obtained by patient, parent, or legal power of commercial real estate attorney - including discussion of procedure risks and benefits, patient questions answered, and patient education provided: yes (verbal consent obtained after discussing risks benefits and alternatives) risk: reasonably certain the patient is not risk comment: Neg POC preg Date/Time of Insertion: 03/23/2025 10:46 AM Immediately prior to procedure a time out was called: yes Pelvic exam performed: no Speculum placed in vagina: yes Cervix cleaned and prepped: yes Tenaculum/Allis/Ring Forceps applied to cervix: yes Anesthesia used: no Uterus sound depth (cm): 7 Cervix manually dilated: no IUD inserted without complications: yes Strings trimmed to (cm): 4 Patient tolerated procedure well: yes Inserted with ultrasound guidance: no Transvaginal sono confirmed fundal placement: no Estimated blood loss (mL): 0 Intended removal date: 8 years Insertion comments: Iud inserted wtihout difficulty, strings cut to 4cm Angela Parker MD documented in this encounter [facility] Work Phone: 03-23-2025 Instructions Angela Parker MD - 03/23/2025 10:20 AM EDT IUD INSERTION Your doctor, Angela Parker MD, placed your liletta IUD (intrauterine device) on 03/23/25. - A follow-up appointment should be scheduled after your next menstrual period (or after one month) to check on correct placement of the IUD and to discuss any concerns you may have. - After your IUD placement, you may swim, exercise, and use tampons as soon as you wish. - Avoid having sexual intercourse for the next 2 to 3 days. - The IUD works right away for control. - Feel for the strings of the IUD at the cervix (opening to the uterus) every month at the end of your menstrual period. If you do not feel the strings, schedule an appointment to see your doctor as soon as possible. Use another form of control until you have been examined. You may experience these normal side effects after IUD insertion: 1. Mild lower abdominal cramping. 2. Bleeding, like your average menstrual period, for 24 to 48 hours. 3. Spotting or bleeding between periods which may occur for up to 3 months. Call the clinic if you experience any of the following symptoms: Vaginal bleeding that is heavier than a menstrual period or completely soaks a pad in less than one hour. Severe lower abdominal pain. Unusual or foul-smelling vaginal discharge. Fever greater than 100.4 degrees Fahrenheit orally during the first week after IUD placement. A missed menstrual period, or if you think you may be . - Continue to have a check-up every year to check for the strings and IUD position. - Your IUD will need to be replaced in 8 years. Please call us at [phone] if you have any questions or concerns. documented in this encounter [facility] Work Phone: 03-17-2025 History of Present illness Narrative Subjective: Anand Manriquez is a 24 y.o. female who presents to clinic today for POSSIBLE HAND FOOT AND MOUTH She comes in today due to bilateral hand itching, swelling feeling and then now feet symptoms. No current respiratory symptoms except for a sore throat, does feel like she has a sore on her right tonsil. Doesn't feel like tonsil is swollen. No new sexual partners. 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 Also in [place] a bunch of kids. Answers submitted by the patient for this visit: Rash Questionnaire (Submitted on 03/17/2025) Chief Complaint: Rash Chronicity: new Onset: today Progression since onset: waxing and waning Affected locations: left hand, left wrist, left fingers, left foot, right hand, right wrist, right fingers, right foot Characteristics: burning, pain, redness, swelling, itchiness Exposed to: an ill contact, an insect bite/sting anorexia: No facial edema: No joint pain: Yes nail changes: No Review of Systems Constitutional: Positive for fatigue. Negative for fever. HENT: Positive for sore throat. Negative for congestion and rhinorrhea. Eyes: Negative for pain. Respiratory: Negative for cough and shortness of breath. Gastrointestinal: Negative for diarrhea and vomiting. Skin: Positive for rash. Assessment/Plan: Anand Manriquez is a 24 y.o. female with a history of vaping who presents to clinic today to address the following issues: 1. Itching of both hands methylPREDNISolone (Medrol Dospak) 4 mg tablets CANCELED: Syphilis Screen with Reflex CANCELED: Syphilis Screen with Reflex 2. Irritant contact dermatitis due to cosmetics methylPREDNISolone (Medrol Dospak) 4 mg tablets - Acute problem, unresolved, new to this provider, requires further workup and treatment - consistent with contact dermatitis, will remove irritant and if not improving in 48hours start medrol dosepak Problem List Items Addressed This Visit None Visit Diagnoses Itching of both hands - Primary Relevant Medications methylPREDNISolone (Medrol Dospak) 4 mg tablets Irritant contact dermatitis due to cosmetics Relevant Medications methylPREDNISolone (Medrol Dospak) 4 mg tablets There are no Patient Instructions on file for this visit. Follow up: for IUD placement Return precautions discussed. An After Visit Summary was given to the patient. All questions were answered and patient in agreement with plan. Objective: BP 120/78 Pulse 97 Ht 1.632 m (5' 4.25) Wt 48.8 kg (107 lb 9.6 oz) SpO2 98% BMI 18.33 kg/m Physical Exam Vitals and nursing note reviewed. Constitutional: General: She is not in acute distress. Appearance: Normal appearance. HENT: Head: Normocephalic and atraumatic. Mouth/Throat: Mouth: Mucous membranes are moist. Comments: Single ulcer on right tonsil Eyes: General: No scleral icterus. Right eye: No discharge. Left eye: No discharge. Extraocular Movements: Extraocular movements intact. Conjunctiva/sclera: Conjunctivae normal. Pulmonary: Effort: No respiratory distress. Skin: General: Skin is warm and dry. Comments: Bilateral hands with erythema and redness and warmth just past the wrist Neurological: General: No focal deficit present. Mental Status: She is alert and oriented to person, place, and time. Psychiatric: Attention and Perception: Attention normal. Mood and Affect: Mood normal. Speech: Speech normal. Behavior: Behavior normal. Cognition and Memory: Cognition and memory normal. Judgment: Judgment normal. I spent 10 minutes in total time for this visit including all related clinical activities before, during, and after the visit excluding other billable activities/procedure time. Angela Parker MD documented in this encounter [facility] Work Phone: 12-11-2024 History of Present illness Narrative Subjective: Anand Manriquez is a 24 y.o. female who presents to clinic today for annual exam Medical History: (Please complete in history tab) - Any changes to your personal or family history? no - Any personal/family history of the following: Hypertension, heart attack, high cholesterol, stroke Cancer of the colon, breast, prostate or skin Addiction, alcoholism, mental health concerns Diabetes, thyroid or autoimmune disease PHQ2-0 (Provider to ask): [facility] health: - Any issues with sleep? no - How do you feel about your eating habits? 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 2x weekly - Do you have any goals related to exercise or nutrition? Gain a bit more weight - How is your stress level? Not bad - Any guns in the home? yes If yes, are they locked in a safe? yes Gynecologic History: (Please complete obstetric history in the history tab) - Do you have any menstrual concerns? Getting bad cramps, if she takes nsaid prior to cramping its manageable - Do you have any breast concerns? no - Date of last pap smear: 2 years ago - Results of last pap smear, if known: normal - Personal history of prior abnormal pap smear?: no Sexual history (provider to ask): - Have you been sexually active within the past year? yes - What are the genders of your sexual partner(s)? male - Are you or your spouse/partner wanting to become or have children in the next year? no - If no, are you currently using any method to prevent :? Cycle tracking and condoms - Do you have any questions or concerns about contraceptive access? yes - Do you have a personal history of sexually transmitted infections (STI)?: no - Have you ever been tested for HIV? no - Do you want comprehensive STI testing today? no Domestic Violence Screening (Provider to ask): Because violence is so common in many people's lives and because there is help available for those being abused, I now ask every patient about domestic violence: - Within the past year have you been hit, slapped, kicked or otherwise physically hurt by someone? no - Are you in a relationship with a person who threatens or physically hurts you? no - Has anyone forced you to have sexual activities that made you feel uncomfortable? no Review of Systems Assessment/Plan: Anand Debby Manriquez is a 24 y.o. female who presents to clinic today to address the following issues: 1. Encounter for gynecological examination without abnormal finding 2. Screening for cervical cancer THINPREP PAP TEST Pap smear: done today, if wnl due in 3 years Mammogram: [facility] Depression Screening: neg 11/2024 HIV Screen: negative 11/2024 Hep C Screen: neg 11/2024 DV: neg 11/2024 DEXA: [facility] Routine well woman examination wnl. Pap smear obtained. There are no Patient Instructions on file for this visit. Follow up: 1 year or sooner as needed Return precautions discussed. An After Visit Summary was given to the patient. All questions were answered and patient in agreement with plan. Objective: BP 102/80 Pulse 79 Ht 1.632 m (5' 4.25) Wt 49 kg (108 lb) SpO2 99% BMI 18.39 kg/m Physical Exam Vitals and nursing note reviewed. Constitutional: General: She is not in acute distress. Appearance: Normal appearance. HENT: Head: Normocephalic and atraumatic. Right Ear: Tympanic membrane normal. Left Ear: Tympanic membrane normal. Nose: No congestion or rhinorrhea. Mouth/Throat: Mouth: Mucous membranes are moist. Pharynx: Posterior oropharyngeal erythema present. No oropharyngeal exudate. Eyes: General: No scleral icterus. Right eye: No discharge. Left eye: No discharge. Extraocular Movements: Extraocular movements intact. Conjunctiva/sclera: Conjunctivae normal. Cardiovascular: Rate and Rhythm: Normal rate and regular rhythm. Pulmonary: Effort: Pulmonary effort is normal. No respiratory distress. Breath sounds: Normal breath sounds. No wheezing. Abdominal: General: Abdomen is flat. There is no distension. Palpations: Abdomen is soft. Genitourinary: General: Normal vulva. Exam position: Supine. Pubic Area: No rash or pubic lice. Alexis stage (genital): 5. Vagina: Normal. Cervix: Normal. Musculoskeletal: Right lower leg: No edema. Left lower leg: No edema. Lymphadenopathy: Cervical: No cervical adenopathy. Skin: General: Skin is warm and dry. Neurological: General: No focal deficit present. Mental Status: She is alert and oriented to person, place, and time. Deep Tendon Reflexes: Reflexes normal. Psychiatric: Attention and Perception: Attention normal. Mood and Affect: Mood normal. Speech: Speech normal. Behavior: Behavior normal. Cognition and Memory: Cognition and memory normal. Judgment: Judgment normal. LABS: Lab Results Component Value Date CHOL 173 12/10/2024 HDL 66.0 12/10/2024 The ASCVD Risk score (Corie FUENTES, et al., 2019) failed to calculate for the following reasons: The 2019 ASCVD risk score is only valid for ages 40 to 79 IMAGES: No new images I spent 30 minutes in total time for this visit including all related clinical activities before, during, and after the visit excluding other billable activities/procedure time. Angela Parker MD documented in this encounter [facility] Work Phone: 09-08-2024 History of Present illness Narrative Subjective Patient ID: Anand Manriquez is a 24 y.o. female who presents for UTI (Possible uti: itching, burning, discomfort and frequency since 09/04/2024). Anand comes to office for concerns of UTI. Sx started Th night, took an @ home UTI test and leuk were +, nit: negative. + malodorous urine Last UTI 1Y ago; sx today feel similar to as in the past IO UA: blood-trace, nit: neg, leuks: neg LMP: 09/04/24, denies UTI This is a new problem. The current episode started in the past 7 days. The problem occurs every urination. The problem has been unchanged. The quality of the pain is described as burning. The pain is mild. There has been no fever. She is Sexually active. There is No history of pyelonephritis. Associated symptoms include frequency. Pertinent negatives include no chills, flank pain, hematuria, nausea, possible , urgency or vomiting. Associated symptoms comments: + dysuria itching. She has tried nothing for the symptoms. Review of Systems Constitutional: Negative for chills. Gastrointestinal: Negative for nausea and vomiting. Genitourinary: Positive for dysuria and frequency. Negative for flank pain, hematuria and urgency. Objective BP 112/68 Pulse 71 Ht 1.632 m (5' 4.25) Wt 54 kg (119 lb) SpO2 96% BMI 20.27 kg/m Physical Exam Vitals reviewed. Constitutional: General: She is not in acute distress. Appearance: Normal appearance. She is not ill-appearing. Cardiovascular: Rate and Rhythm: Normal rate and regular rhythm. Pulmonary: Effort: Pulmonary effort is normal. Breath sounds: Normal breath sounds. Abdominal: General: Abdomen is flat. Bowel sounds are decreased. Palpations: Abdomen is soft. Tenderness: There is no abdominal tenderness. There is no right CVA tenderness or left CVA tenderness. Skin: General: Skin is warm and dry. Neurological: Mental Status: She is alert. Assessment/Plan Problem List Items Addressed This Visit None Visit Diagnoses Codes Dysuria - Primary R30.0 Relevant Medications sulfamethoxazole-trimethoprim (Bactrim DS) 800-160 mg tablet phenazopyridine (Pyridium) 100 mg tablet Urine frequency R35.0 Relevant Medications sulfamethoxazole-trimethoprim (Bactrim DS) 800-160 mg tablet phenazopyridine (Pyridium) 100 mg tablet Other Relevant Orders POCT UA Automated manually resulted documented in this encounter [facility] Work Phone: 09-08-2024 Instructions YUN Pederson - 09/08/2024 11:40 AM EDT Start Bactrim DS 1 tablet twice a day x3 days Ensure you are drinking plenty of water with this medication Pyridium 100mg three times a day as needed for bladder spasms The following attachments cannot be sent through Care Everywhere.Sulfamethoxazole and Trimethoprim, ADULT (Dominican)documented in this encounter [facility] Work Phone: 05-12-2024 Evaluation + Plan note Associated Problem(s): Underweight Chronic, known to provider - patient is gaining weight at an appropriate weight, she will wokr to continue to gain weight [facility] Work Phone: 05-12-2024 Miscellaneous Notes Associated Problem(s): Underweight Chronic, known to provider - patient is gaining weight at an appropriate weight, she will wokr to continue to gain weight Associated Problem(s): Vaping nicotine dependence, non-tobacco product Chronic, resolved! - quit vaping 05/08/24 - will work to wean off of all nicotine containing products documented in this encounter [facility] Work Phone: 05-12-2024 Evaluation + Plan note Associated Problem(s): Vaping nicotine dependence, non-tobacco product Chronic, resolved! - quit vaping 05/08/24 - will work to wean off of all nicotine containing products [facility] Work Phone: 05-12-2024 History of Present illness Narrative Subjective: Anand Manriquez is a 23 y.o. female who presents to clinic today for Follow-up (3 MO FU VAPING) Weight Gain: She notse that she has had an increased appetite this past month. She has not been having to force herself to eat. She has gained 7 lbs from our last visit. She notices her hunger signals again. She eats multiple meals a day again. She also has snacks. Vaping: She notes that she quit vaping on . She got rid of her vape on . She uses 3mg Armando pouches to replace the nicotine. She has only had 2-3 cravings to smoke to quit. She was around a lot of people with vapes Sunday and had no desire to use it. She uses 4-6 zinns daily. She is planning to wean off of this. She was at the dentist 3 months ago, they were concerned that she had thyroid irregularity. Negative domestic violence screen., Review of Systems Assessment/Plan: Anand Manriquez is a 23 y.o. female with a history of irregular periods and anxiety who presents to clinic today to address the following issues: 1. Annual physical exam 2. Underweight Tsh With Reflex To Free T4 If Abnormal Comprehensive metabolic panel 3. Vaping nicotine dependence, non-tobacco product 4. Screening for HIV (human immunodeficiency virus) HIV 1/2 Antigen/Antibody Screen with Reflex to Confirmation 5. Need for hepatitis C screening test Hepatitis C antibody 6. Screening cholesterol level Lipid panel 7. Screening examination for STI C. trachomatis / N. gonorrhoeae, DNA probe 8. Screening for diabetes mellitus Comprehensive metabolic panel 9. Need for prophylactic vaccination against diphtheria and tetanus Tdap vaccine, age 7 years and older (BOOSTRIX) Annual Physical without noted abnormalities unless otherwise noted below: Problem List Items Addressed This Visit Underweight Overview Initial weight 89lbs 01/09/24. Weight 98lbs 05/12/24 Current Assessment & Plan Chronic, known to provider - patient is gaining weight at an appropriate weight, she will wokr to continue to gain weight Relevant Orders Tsh With Reflex To Free T4 If Abnormal Comprehensive metabolic panel Vaping nicotine dependence, non-tobacco product Current Assessment & Plan Chronic, resolved! - quit vaping 05/08/24 - will work to wean off of all nicotine containing products Annual physical exam - Primary Overview Annual examination: Pap smear: due Nov 2024 Lipid Panel: ordered Diabetes: ordered HIV Screen: ordered Hep C Screen: ordered DV: neg 05/19 Other Visit Diagnoses Screening for HIV (human immunodeficiency virus) Relevant Orders HIV 1/2 Antigen/Antibody Screen with Reflex to Confirmation Need for hepatitis C screening test Relevant Orders Hepatitis C antibody Screening cholesterol level Relevant Orders Lipid panel Screening examination for STI Relevant Orders C. trachomatis / N. gonorrhoeae, DNA probe Screening for diabetes mellitus Relevant Orders Comprehensive metabolic panel Need for prophylactic vaccination against diphtheria and tetanus Relevant Orders Tdap vaccine, age 7 years and older (BOOSTRIX) Patient Instructions Routine adult health maintenance It sounds as if things are going well. Keep up the good work! Exercise: - Try for at least 150 minutes of cardiovascular (strenuous) exercise per week. Safety: - Wear your seat belt at all times when in a car and NO TEXTING/CELL PHONES while driving. - Wear a helmet while biking, using a motorcycle, skiing/snow boarding, skate/long boarding, or any activities faster than running. - Avoid smoking. - If you have a gun it needs to be locked up and stored unloaded away from children. Nutrition: - Drink plenty of water each day - No more than 2 alcoholic drinks per day for men. No more than 1 alcoholic drink per day for woman. - Read labels for calories - Use website My Fitness Pal for free calorie counting tool when possible. Stress: - Make time for activities that allow you to decrease stress and recognize any red flags of stress for you to know when to activate your stress release mechanisms. Sleep: - Try to get 7-9 hours of sleep each night. Preventative Care: - Follow-up yearly for your annual exams - For most people, the following are indicated: - reproductive age females vitamin daily - Colonoscopies for colon cancer screening starting at age 45, then every 3-10 years - Mammograms for breast cancer screening every 1-2 years starting at age 40 - Annual flu vaccination - Bone density screening at age 65 - Pneumonia vaccination at age 65 (some people need this before age 65, so ask your doctor!) - Shingles vaccination (shingrix) at age 50 Follow up: 7 months for physical and pap smear Return precautions discussed. An After Visit Summary was given to the patient. All questions were answered and patient in agreement with plan. Objective: BP 120/78 Pulse 76 Ht 1.632 m (5' 4.25) Wt (!) 44.7 kg (98 lb 9.6 oz) SpO2 100% BMI 16.79 kg/m Physical Exam Vitals and nursing note reviewed. Constitutional: General: She is not in acute distress. HENT: Head: Normocephalic and atraumatic. Right Ear: Tympanic membrane, ear canal and external ear normal. There is no impacted cerumen. Left Ear: Tympanic membrane, ear canal and external ear normal. There is no impacted cerumen. Mouth/Throat: Mouth: Mucous membranes are moist. Pharynx: No oropharyngeal exudate or posterior oropharyngeal erythema. Eyes: General: No scleral icterus. Right eye: No discharge. Left eye: No discharge. Extraocular Movements: Extraocular movements intact. Conjunctiva/sclera: Conjunctivae normal. Pupils: Pupils are equal, round, and reactive to light. Cardiovascular: Rate and Rhythm: Normal rate and regular rhythm. Pulmonary: Effort: Pulmonary effort is normal. No respiratory distress. Breath sounds: Normal breath sounds. Abdominal: General: Abdomen is flat. There is no distension. Musculoskeletal: Cervical back: Normal range of motion. No tenderness. Right lower leg: No edema. Left lower leg: No edema. Lymphadenopathy: Cervical: No cervical adenopathy. Skin: General: Skin is warm and dry. Neurological: General: No focal deficit present. Mental Status: She is alert and oriented to person, place, and time. Deep Tendon Reflexes: Reflexes normal. Psychiatric: Mood and Affect: Mood normal. Behavior: Behavior normal. Thought Content: Thought content normal. Judgment: Judgment normal. I spent 20 minutes in total time for this visit including all related clinical activities before, during, and after the visit excluding other billable activities/procedure time. Angela Parker MD documented in this encounter [facility] Work Phone: 05-12-2024 Instructions Angela Parker MD - 05/12/2024 9:00 AM EDT Routine adult health maintenance It sounds as if things are going well. Keep up the good work! Exercise: - Try for at least 150 minutes of cardiovascular (strenuous) exercise per week. Safety: - Wear your seat belt at all times when in a car and NO TEXTING/CELL PHONES while driving. - Wear a helmet while biking, using a motorcycle, skiing/snow boarding, skate/long boarding, or any activities faster than running. - Avoid smoking. - If you have a gun it needs to be locked up and stored unloaded away from children. Nutrition: - Drink plenty of water each day - No more than 2 alcoholic drinks per day for men. No more than 1 alcoholic drink per day for woman. - Read labels for calories - Use website [employer] for free calorie counting tool when possible. Stress: - Make time for activities that allow you to decrease stress and recognize any red flags of stress for you to know when to activate your stress release mechanisms. Sleep: - Try to get 7-9 hours of sleep each night. Preventative Care: - Follow-up yearly for your annual exams - For most people, the following are indicated: - reproductive age females vitamin daily - Colonoscopies for colon cancer screening starting at age 45, then every 3-10 years - Mammograms for breast cancer screening every 1-2 years starting at age 40 - Annual flu vaccination - Bone density screening at age 65 - Pneumonia vaccination at age 65 (some people need this before age 65, so ask your doctor!) - Shingles vaccination (shingrix) at age 50 documented in this encounter [facility] Work Phone: 02-07-2024 Evaluation + Plan note Associated Problem(s): Vaping nicotine dependence, non-tobacco product Chronic, known to provider - we will trial nicotine replacement thearpy with a tapering patch from 14mg for 6 weeks to 7mg for 2 weeks with nicotine gum as needed [facility] Work Phone: 02-07-2024 Miscellaneous Notes Associated Problem(s): Vaping nicotine dependence, non-tobacco product Chronic, known to provider - we will trial nicotine replacement thearpy with a tapering patch from 14mg for 6 weeks to 7mg for 2 weeks with nicotine gum as needed Associated Problem(s): Underweight Chronic, improving -Encouraged her to continue modifications with a goal of continued weight gain documented in this encounter [facility] Work Phone: 02-07-2024 Evaluation + Plan note Associated Problem(s): Underweight Chronic, improving -Encouraged her to continue modifications with a goal of continued weight gain [facility] Work Phone: 02-07-2024 History of Present illness Narrative Subjective: Anand Manriquez is a 23 y.o. female who presents to clinic today for 1 MO FU Weight: She met with the lead database administrator and made a plan for increased calories, I reviewed the notes - she gained 2 lbs - she has to remind herself its a marathon and not a sprint -Has seen improvement with weight with a variety of increasing calories as well as consistently eating 3 meals a day. Additionally she is not vaping near to mealtime. Vaping: - she hasn't started the wellbutrin yet, she waited for antibotics to stop - both of her jobs require her to drive a lot - she notes that when she quit before that she had a lot of cravings and irritability Review of Systems Assessment/Plan: Anand Manriquez is a 23 y.o. female with a history of irregular periods and anxiety who presents to clinic today to address the following issues: 1. Vaping nicotine dependence, non-tobacco product Follow Up In Primary Care - Established nicotine (Nicoderm CQ) 14 mg/24 hr patch nicotine polacrilex (Nicorette) 2 mg gum nicotine (Nicoderm CQ) 7 mg/24 hr patch 2. Underweight Follow Up In Primary Care - Established Problem List Items Addressed This Visit Underweight Overview Initial weight 89lbs 01/09/24. Current Assessment & Plan Chronic, improving -Encouraged her to continue modifications with a goal of continued weight gain Vaping nicotine dependence, non-tobacco product - Primary Current Assessment & Plan Chronic, known to provider - we will trial nicotine replacement thearpy with a tapering patch from 14mg for 6 weeks to 7mg for 2 weeks with nicotine gum as needed Relevant Medications nicotine (Nicoderm CQ) 14 mg/24 hr patch nicotine polacrilex (Nicorette) 2 mg gum nicotine (Nicoderm CQ) 7 mg/24 hr patch (Start on 03/20/2024) Patient Instructions [email or web address] Patients smoking ?10 cigarettes/day: Begin with step 2 (14 mg/day) for 6 weeks, followed by step 3 (7 mg/day) for 2 weeks. Okay to chew up 1 piece of gum every 1-2 hours as needed Follow up: 3 months Return precautions discussed. An After Visit Summary was given to the patient. All questions were answered and patient in agreement with plan. Objective: BP 104/62 Pulse 84 Ht 1.632 m (5' 4.25) Wt (!) 41.3 kg (91 lb 1.6 oz) SpO2 100% BMI 15.52 kg/m Physical Exam Vitals and nursing note reviewed. Constitutional: General: She is not in acute distress. Appearance: Normal appearance. HENT: Head: Normocephalic and atraumatic. Mouth/Throat: Mouth: Mucous membranes are moist. Eyes: General: No scleral icterus. Right eye: No discharge. Left eye: No discharge. Extraocular Movements: Extraocular movements intact. Conjunctiva/sclera: Conjunctivae normal. Pulmonary: Effort: No respiratory distress. Skin: General: Skin is warm and dry. Neurological: General: No focal deficit present. Mental Status: She is alert and oriented to person, place, and time. Psychiatric: Attention and Perception: Attention normal. Mood and Affect: Mood normal. Speech: Speech normal. Behavior: Behavior normal. Cognition and Memory: Cognition and memory normal. Judgment: Judgment normal. I spent 18 minutes in total time for this visit including all related clinical activities before, during, and after the visit excluding other billable activities/procedure time. Angela Parker MD documented in this encounter [facility] Work Phone: 02-07-2024 Instructions Angela Parker MD - 02/07/2024 9:20 AM EDT [email or web address] Patients smoking ?10 cigarettes/day: Begin with step 2 (14 mg/day) for 6 weeks, followed by step 3 (7 mg/day) for 2 weeks. Okay to chew up 1 piece of gum every 1-2 hours as needed documented in this encounter [facility] Work Phone: Evaluation note Diagnosis Vaping nicotine dependence, non-tobacco product- Primary Underweight documented in this encounter [facility] Work Phone: Evaluation note* Diagnosis Annual physical exam- Primary Routine general medical examination at a health care facility Underweight Vaping nicotine dependence, non-tobacco product Screening for HIV (human immunodeficiency virus) Special screening examination for other specified viral diseases Need for hepatitis C screening test Special screening examination for other specified viral diseases Screening cholesterol level Screening for lipoid disorders Screening examination for STI Screening for diabetes mellitus Need for prophylactic vaccination against diphtheria and tetanus documented in this encounter [facility] Work Phone: Evaluation note* Diagnosis Vaping nicotine dependence, non-tobacco product- Primary Underweight Annual physical exam- Primary Routine general medical examination at a health care facility Underweight Vaping nicotine dependence, non-tobacco product Screening for HIV (human immunodeficiency virus) Special screening examination for other specified viral diseases Need for hepatitis C screening test Special screening examination for other specified viral diseases Screening cholesterol level Screening for lipoid disorders Screening examination for STI Screening for diabetes mellitus Need for prophylactic vaccination against diphtheria and tetanus Dysuria- Primary Urine frequency documented in this encounter [facility] Work Phone: Evaluation note* Diagnosis Vaping nicotine dependence, non-tobacco product- Primary Underweight Annual physical exam- Primary Routine general medical examination at a health care facility Underweight Vaping nicotine dependence, non-tobacco product Screening for HIV (human immunodeficiency virus) Special screening examination for other specified viral diseases Need for hepatitis C screening test Special screening examination for other specified viral diseases Screening cholesterol level Screening for lipoid disorders Screening examination for STI Screening for diabetes mellitus Need for prophylactic vaccination against diphtheria and tetanus Encounter for gynecological examination without abnormal finding- Primary Screening for cervical cancer Screening for malignant neoplasm of the cervix documented in this encounter [facility] Work Phone: Evaluation note* Diagnosis Vaping nicotine dependence, non-tobacco product- Primary Underweight Annual physical exam- Primary Routine general medical examination at a health care facility Underweight Vaping nicotine dependence, non-tobacco product Screening for HIV (human immunodeficiency virus) Special screening examination for other specified viral diseases Need for hepatitis C screening test Special screening examination for other specified viral diseases Screening cholesterol level Screening for lipoid disorders Screening examination for STI Screening for diabetes mellitus Need for prophylactic vaccination against diphtheria and tetanus Itching of both hands- Primary Irritant contact dermatitis due to cosmetics Dermatitis due to cosmetics documented in this encounter [facility] Work Phone: Evaluation note* Diagnosis Vaping nicotine dependence, non-tobacco product- Primary Underweight Annual physical exam- Primary Routine general medical examination at a health care facility Underweight Vaping nicotine dependence, non-tobacco product Screening for HIV (human immunodeficiency virus) Special screening examination for other specified viral diseases Need for hepatitis C screening test Special screening examination for other specified viral diseases Screening cholesterol level Screening for lipoid disorders Screening examination for STI Screening for diabetes mellitus Need for prophylactic vaccination against diphtheria and tetanus Encounter for insertion of 52 mg levonorgestrel-releasing intrauterine device (IUD)- Primary IUD (intrauterine device) in place Presence of intrauterine contraceptive device documented in this encounter [facility] Work Phone: Evaluation note* Diagnosis Vaping nicotine dependence, non-tobacco product- Primary Underweight Annual physical exam- Primary Routine general medical examination at a health care facility Underweight Vaping nicotine dependence, non-tobacco product Screening for HIV (human immunodeficiency virus) Special screening examination for other specified viral diseases Need for hepatitis C screening test Special screening examination for other specified viral diseases Screening cholesterol level Screening for lipoid disorders Screening examination for STI Screening for diabetes mellitus Need for prophylactic vaccination against diphtheria and tetanus Intrauterine device surveillance- Primary IUD (intrauterine device) in place Presence of intrauterine contraceptive device documented in this encounter [facility] Work Phone: Evaluation note* Diagnosis Vaping nicotine dependence, non-tobacco product- Primary Underweight Annual physical exam- Primary Routine general medical examination at a health care facility Underweight Vaping nicotine dependence, non-tobacco product Screening for HIV (human immunodeficiency virus) Special screening examination for other specified viral diseases Need for hepatitis C screening test Special screening examination for other specified viral diseases Screening cholesterol level Screening for lipoid disorders Screening examination for STI Screening for diabetes mellitus Need for prophylactic vaccination against diphtheria and tetanus Petechiae- Primary Spontaneous ecchymoses Pain in left lower leg Purpura Other nonthrombocytopenic purpuras documented in this encounter [facility] Work Phone: Evaluation noteNo assessment information available [facility] Work Phone: Evaluation note* Diagnosis Vaping nicotine dependence, non-tobacco product- Primary Underweight Annual physical exam- Primary Routine general medical examination at a health care facility Underweight Vaping nicotine dependence, non-tobacco product Screening for HIV (human immunodeficiency virus) Special screening examination for other specified viral diseases Need for hepatitis C screening test Special screening examination for other specified viral diseases Screening cholesterol level Screening for lipoid disorders Screening examination for STI Screening for diabetes mellitus Need for prophylactic vaccination against diphtheria and tetanus 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 IUD (intrauterine device) in place Presence of intrauterine contraceptive device documented in this encounter [facility] Work Phone: Evaluation note* Diagnosis Vaping nicotine dependence, non-tobacco product- Primary Underweight Annual physical exam- Primary Routine general medical examination at a health care facility Underweight Vaping nicotine dependence, non-tobacco product Screening for HIV (human immunodeficiency virus) Special screening examination for other specified viral diseases Need for hepatitis C screening test Special screening examination for other specified viral diseases Screening cholesterol level Screening for lipoid disorders Screening examination for STI Screening for diabetes mellitus Need for prophylactic vaccination against diphtheria and tetanus 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 IUD (intrauterine device) in place Presence of intrauterine contraceptive device Encounter for IUD removal documented in this encounter [facility] Work Phone: Reason for referral (narrative)No reason for referral information [facility] [place] [facility]: Summary Purpose Family History No Family History Records Found Relationship Condition Age at Onset Recorded Date/T pretty aunt Endometriosis Unknown mother Cyst of uterus Unknown Hypertension Unknown grandfather Hyperlipidemia Unknown Advance Directives No Advanced Directives Records FoundNo Advanced Directives Records FoundNo Advanced Directives Records FoundNo Advanced Directives Records FoundNo Advanced Directives Records FoundNo Advanced Directives Records FoundNo Advanced Directives Records FoundNo Advanced Directives Records FoundNo Advanced Directives Records FoundNo Advanced Directives Records FoundNo Advanced Directives Records FoundNo Advanced Directives Records Found Additional Source Comments INFORMATION SOURCE (unrecogn ized section and content) DATE CREATED AUTHOR 11/05/2018 [facility] DATE CREATED AUTHOR AUTHOR'S ORGANIZ ATION 11/14/2021 [facility] DATE CREATED AUTHOR AUTHOR'S ORGANIZ ATION 03/29/2023 [facility] DATE CREATED AUTHOR AUTHOR'S ORGANIZ ATION 04/06/2023 [facility] DATE CREATED AUTHOR AUTHOR'S ORGANIZ ATION 06/28/2023 [facility] DATE CREATED AUTHOR AUTHOR'S ORGANIZ ATION 06/28/2023 [facility] DATE CREATED AUTHOR AUTHOR'S ORGANIZ ATION 12/16/2024 [facility] DATE CREATED AUTHOR AUTHOR'S ORGANIZ ATION 04/23/[address] [facility] DATE CREATED AUTHOR AUTHOR'S ORGANIZ ATION 05/16/2025 [facility] DATE CREATED AUTHOR AUTHOR'S ORGANIZ ATION 05/22/2025 [facility] DATE CREATED AUTHOR AUTHOR[facility]S ORGANIZ ATION [facility] DATE CREATED AUTHOR AUTHOR'S ORGANIZ ATION 06/08/2025 [facility] <item> Privacy Markings (unrecogniz ed section and content) Section Author: Lanny Busch PROHIBITION ON REDISCLOSURE OF CONFIDENTIAL INFORMATION This notice accompanies a disclosure of information concerning a client made to you with the consent of such client. Reason for Visit (unrecogniz ed section and content) Reason Comments 1 MO FU Specialty Diagnoses / Procedures Referred By Contac t Referred To Contact Primary Care Diagnoses Vaping nicotine dependence, non-tobacco product Underweight Procedures Follow Up In Primary Care - Established Angela Parker MD [address] [place] [address] Referral ID Status Reason Start Date Expiration Date V isits Requested Visits Authorized [id number] Authorized 01/09/2024 01/08/2025 1 1 Reason Comments Follow-up 3 MO FU VAPING Reason Comments UTI Possible uti: itchin g, burning, discomfort and frequency since 09/04/2024 Reason Comments Annual Exam Gynecologic Exam Reason Comments POSSIBLE HAND FOOT AND MOUTH Reason Comments Contraception LILETTA Specialty Diagnoses / Procedures Referred By Contac t Referred To Contact Diagnoses Encounter for insertion of 52 mg levonorgestrel-releasing intrauterine device (IUD) Angela Parker MD [address] [address] Phone: tel: fax: Referral ID Status Reason Start Date Expiration Date V isits Requested Visits Authorized [id number] Pending Review 03/23/2025 03/23/2026 1 1 Reason Comments string check for IUD Reason Comments Rash Bilateral leg rash s nahun Sunday. Sent here from urgent care. Pt reports some spots are painful and itchy at times. Denies n/v/d or fevers. Reason Comments Follow-up Follow up from [facility]; 04/30/25 Reason Comments IUD Removed IUD Removed Care Teams (unrecognized sec tion and content) Lcsw Relationship Specialty Start Date End Date Angela Parker MD [address] [id number] PCP - General Family Medicine 01/09/24 Lcsw Relationship Specialty Start Date End Date Angela Parker MD [address] [place] [address] PCP - General Family Medicine 01/09/24 Angela Parker MD [address] [place] [address] PCP - MMO ACO PCP 01/25/24 Lcsw Relationship Specialty Start Date End Date Angela Parker MD [address] [address] PCP - MMO ACO PCP 01/25/24 Angela Parker MD [address] [address] PCP - General Family Medicine 09/08/24 Lcsw Relationship Specialty Start Date End Date Angela Parker MD [address] [address] PCP - General Family Medicine 09/08/24 Lcsw Relationship Specialty Start Date End Date Angela Parker MD [address] [address] PCP - General Family Medicine 09/08/24 Angela Parker MD [address] [place] [address] PCP - MMO ACO PCP 12/27/24 Lcsw Relationship Specialty Start Date End Date Angela Parker MD [address] [address] PCP - General Family Medicine 09/08/24 Angela Parker MD [address] [place] [address] PCP - MMO ACO PCP 12/27/24 Lcsw Relationship Specialty Start Date End Date Angela Parker MD [address] [address] PCP - General Family Medicine 09/08/24 Angela Parker MD [address] [place] [address] PCP - MMO ACO PCP 12/27/24 Lcsw Relationship Specialty Start Date End Date Angela Parker MD [address] [place] [address] PCP - General Family Medicine 09/08/24 Angela Parker MD [address] [address] PCP - MMO ACO PCP 12/27/24 Team Status: Active Member Role Status Dates Dr. Stan Chauhan MD Family Provider Active Dr. Angela Parker MD Primary Care Provider Active Team Status: Inactive Member Role Status Dates Dr. Angela Parker MD Primary Care Provider Active Start: April 16, 2025 End: April 16, 2025 DIMITRIOS Wood Attending Provider Active Start: April 16, 2025 End: April 16, 2025 DIMITRIOS Wood Referring Provider Active Start: April 16, 2025 End: April 16, 2025 Lcsw Relationship Specialty Start Date End Date Angela Parker MD [address] [address] PCP - General Family Medicine 09/08/24 Angela Parker MD [address] [address] PCP - MMO ACO PCP 12/27/24 Lcsw Relationship Specialty Start Date End Date Angela Parker MD [address] [address] PCP - General Family Medicine 09/08/24 Angela Parker MD [address] [address] PCP - MMO ACO PCP 12/27/24 Goals (unrecognized section and content) Goals may be documented in a n alternate section FOR RECORDS PERTAINING TO PATIENTS WHO ARE OR HAVE BEEN ENROLLED IN A CHEMICAL DEPENDENCY/SUBSTANCEABUSE PROGRAM, SOME INFORMATION MAY BE OMITTED. This clinical summary was aggregated from multiple sources. Caution should be exercised in using it in the provision of clinical care. This summary normalizes information from multiple sources, and as a consequence, information in this document may materially change the coding, format and clinical context of patient data. In addition, data may be omitted in some cases. CLINICAL DECISIONS SHOULD BE BASED ON THE PRIMARY CLINICAL RECORDS. [facility]. provides no warranty or guarantee of the accuracy or completeness of information in this document.
== END | disposition home or self-care (01) ==
LOC: MTLAB 15:59
PROVIDERS: PCP Family Medicine; Referring Provider Dermatology; Visit Provider Dermatology
DX: M31.0 Hypersensitivity angiitis (principal)
CPT/HCPCS: 36415; 86060